=== PATIENT | male | born 1990 | race Caucasian/White ===

== ENCOUNTER 2024-10-06 23:35 | Emergency (ER) | payer SELFPAY ==
[2024-10-06 23:38] VITALS: BP 134/84; PULSE 79; RESP 18; TEMP 35.9; O2SAT 100
--- NOTE | 2024-10-07 00:11 | PC.NURSE ---
PATIENT CHANGED INTO PAPER SCRUBS, URINE SAMPLE WAS GIVEN AND TAKEN DOWN TO LAB. [facility] GIBS[facility], SITTING AT THE BEDSIDE. PATIENT IS CALM AND COOPERATIVE. WARM BLANKET WAS GIVEN
--- NOTE | 2024-10-07 00:20 | ECG_ITS ---
Test Date: 2024-10-07 00:23:12 Measurements Intervals [place] Rate: 59 P: 53 NE: 162 QRS: 73 QRSD: 97 T: 66 QT: 430 QTc: 428 Interpretive Statements SINUS BRADYCARDIA No previous ECG available for comparison Electronically Signed On 10-09-2024 12:24:42 ROUTING EQUIPMENT TENDER by Robe Hoyos M.D.
--- NOTE | 2024-10-07 00:30 | ED.GENADULT ---
HPI - General Adult General Chief complaint: Psychiatric Symptoms Stated complaint: psychiatric symptoms Source: patient Mode of arrival: ambulatory Limitations: no limitations History of Present Illness HPI narrative: 34-year-old white male released from a psychiatric facility a week ago is depressed and feels like committing suicide so he came in for help. In the past he has tried to hang himself he has no plan today. today got in argument with his mother couple hours later he went back home and the door was locked. patient said he had argument with his mother and he was going to get a public housing and not live with her anymore. She was thinking about laying down on the railroad tracks but did not want to do that so came to the emergency department. He has a history of methamphetamine abuse last took meth around September 23. Otherwise eating and drinking voiding and stooling fine without any fever cough runny nose sore throat rash or itching bleeding or bruising pain problems walking talking seeing or hearing dizziness or lightheadedness or any other complaints. Related Data Home Medications ?Medication ?Instructions ?Recorded ?Confirmed ?Last Taken ?Type ranitidine HCl 300 mg tablet 300 mg PO HS 08/30/19 08/30/19 Unknown History verapamil 180 mg tablet,extended 180 mg PO DAILY 08/30/19 08/30/19 Unknown History release Allergies Allergy/AdvReac Type Severity Reaction Status Date / Time No Known Allergies Allergy Verified 08/30/19 02:23 Review of Systems Review of Systems: All systems reviewed & are unremarkable except as noted in HPI and below PMFSH Past Medical History Medical History HTN (hypertension) GERD (gastroesophageal reflux disease) Pancreatitis Migraine headache Alcohol abuse Recurrent vomiting Recurrent epigastric abdominal pain Recurrent left upper quadrant abdominal pain Surgical History Surgical History H/O tooth extraction Family History Family History Father Diabetes mellitus Social History Social History Social History: Drinks around 1 pint daily,5 days/week Smoking packs per day: 1 Smoking cigarettes per day: 20.0 Years smoked: 14 Smoking pack-years: 14.00 Smoking status: Current every day smoker Tobacco type: cigarettes Second hand tobacco smoke exposure: Yes Alcohol intake: current Drinks per week: 10 Substance use: current Substance use type: methamphetamine Living arrangements: with family Additional living arrangements comments: Lives with his Grandmother Occupation/Education: unemployed Gender identity (if verbalized by the patient): Male Spiritual care concerns: No Agree to blood products: Yes Exam Narrative: ?White male patient with no apparent distress.? Head normocephalic, atraumatic.? Eyes conjunctiva pink sclera nonicteric.? Extraocular movements are intact.? Ears externally normal.? Oropharynx is clear with moist mucous membranes without exudates.? Neck is supple nontender no lymphadenopathy.? Back is nontender.? Lungs are clear.? Heart is regular rate and rhythm without murmurs gallops or rubs.? Chest wall nontender. Abdomen is soft and nontender no hepatosplenomegaly or masses no CVA tenderness no abdominal bruits.? Extremities no cyanosis clubbing or edema.? Skin is warm and dry without rashes or lesions.? Neurological patient is alert and oriented x4.? Motor and sensory grossly intact.? Gait is normal. Course Vital Signs Vital signs: Vital Signs Temperature 35.9 C L 10/06/24 23:38 Pulse Rate 79 10/06/24 23:38 Respiratory Rate 18 10/06/24 23:38 Blood Pressure 134/84 10/06/24 23:38 Pulse Oximetry 100 10/06/24 23:38 Oxygen Delivery Room Air 10/06/24 23:38 Temperature 35.9 C L 10/06/24 23:38 Pulse Rate 79 10/06/24 23:38 Respiratory Rate 18 10/06/24 23:38 Blood Pressure 134/84 10/06/24 23:38 Pulse Oximetry 100 10/06/24 23:38 Oxygen Delivery Room Air 10/06/24 23:38 Medical Decision Making MDM Narrative Medical decision making narrative: ?Patient placed in room: 5 ? History and physical was performed. normal ETOH acetaminophen flu COVID RSV salicylate level.. H&H was 12 and 35.7 with a normal WBC and platelets, CMP was unremarkable. Drug screen was positive Independent Historian: patient External Source Review: Differential Dx includes but not limited to: suicidal ideation, secondary gain patient may be here just because he got locked out of his home by his mother and has no where else to go Medications were Reviewed: home meds reviewed Medications given: none Independently Interpreted by me: sinus bradycardia at a rate of [address] T wave abnormalities impression borderline EKG is independently interpreted by me. Shared decision Making: Evaluation discussed all questions were asked and answered he agreed with the plan Social Situation Impacting Patients Care: Discussed with psych social workers who came and saw patient. Patient will be admitted to [facility] the psychiatrist there. DISCHARGE DIAGNOSIS: depression with suicidal ideation and plan , medically cleared for psychiatric admission for further evaluation and treatment DISPOSITION : transferred to to [facility] psychiatric unit to psychiatrist CONDITION AT DISCHARGE: stable Vital Signs Vital Signs: Vital Signs Temperature 35.9 C L 10/06/24 23:38 Pulse Rate 79 10/06/24 23:38 Respiratory Rate 18 10/06/24 23:38 Blood Pressure 134/84 10/06/24 23:38 Pulse Oximetry 100 10/06/24 23:38 Oxygen Delivery Room Air 10/06/24 23:38 Temperature 35.9 C L 10/06/24 23:38 Pulse Rate 79 10/06/24 23:38 Respiratory Rate 18 10/06/24 23:38 Blood Pressure 134/84 10/06/24 23:38 Pulse Oximetry 100 10/06/24 23:38 Oxygen Delivery Room Air 10/06/24 23:38 Discharge Plan Discharge Patient Language: Malagasy Prescriptions: No Action ranitidine HCl 300 mg Tablet 300 mg PO HS verapamil 180 mg Tablet Extended Release 180 mg PO DAILY Follow-up/Referrals: Aldo Montenegro MD [Primary Care Provider] -
--- NOTE | 2024-10-07 00:42 | PC.NURSE ---
LAB AT THE BEDSIDE
[2024-10-07 00:49] LABS: Hematocrit 35.7 % (40.0-54.0); Mean Corpuscular HGB Conc 33.6 g/dL (32-36); Mean Corpuscular Hemoglobin 29.6 pg (27.0-31.0); Mean Corpuscular Volume 87.9 fL (78.0-102.0); Mean Platelet Volume 9.1 fl (8.7-11.0); Platelet Count Result 222 K/mm3 (150-420); Red Blood Count 4.06 M/mm3 (4.70-6.10); Red Cell Distribution Width 12.6 % (11.6-14.4); White Blood Count 7.4 K/mm3 (4.8-10.8)
[2024-10-07 01:08] LABS: Amphetamine Screen Urine Negative (Negative); Barbiturate Screen Urine Negative (Negative); Benzodiazepines Screen Urine Negative (Negative); Cannabinoid Screen Urine Positive (Negative); Cocaine Screen Urine Negative (Negative); Methadone Screen Urine Negative (Negative); Opiate Screen Urine Negative (Negative); Phencyclidine Screen Urine Negative (Negative)
[2024-10-07 01:15] LABS: Alanine Aminotransferase 22 U/L (16-63); Albumin Level 3.4 g/dL (3.4-5.0); Alkaline Phosphatase 65 U/L (46-116); Anion Gap 10 mmol/L (4-12); Aspartate Amino Transferase 17 U/L (15-37); Bilirubin,Total 0.3 mg/dL (0.00-1.00); Blood Urea Nitrogen 23 mg/dL (7-18); Calcium 8.1 mg/dL (8.5-10.1); Carbon Dioxide 26 mmol/L (21-32); Chloride 107 mmol/L (98-108); Estimated CRCL calculation 120 ml/min; Estimated Glomerular Filt Rate > 60; Glucose 94 mg/dL (70-99); Osmolality Calculated 299 mOsm/kg (285-295); Potassium 3.7 mmol/L (3.5-5.1); Salicylate 2.8 mg/dL (2.8-20.0); Sodium 143 mmol/L (136-145); Total Protein 6.3 g/dL (6.4-8.2)
[2024-10-07 01:16] LABS: Acetaminophen < 2 ug/mL (10-30); Ethanol < 3 mg/dL (0-6)
[2024-10-07 01:25] LABS: SARS-CoV-2 RNA PCR Negative (Negative)
[2024-10-07 01:27] LABS: Influenza A QL RT-PCR Negative (Negative); Influenza B QL RT-PCR Negative (Negative); RSV RNA, RT-PCR Negative (Negative)
--- NOTE | 2024-10-07 02:00 | PC.NURSE ---
PATIENT APPEARS TO BE SLEEPING. RESP EVEN AND UNLABORED. [facility], SITTING OUTSIDE THE ROOM
--- NOTE | 2024-10-07 02:30 | PC.NURSE ---
[facility] STAFF, [place] AT THE BEDSIDE
--- NOTE | 2024-10-07 03:30 | PC.NURSE ---
[facility] STAFF WITH PATIENT
[2024-10-07 03:49] VITALS: BP 117/74; PULSE 68; RESP 18; TEMP 36.4; O2SAT 98
--- NOTE | 2024-10-07 04:00 | PC.NURSE ---
APPEARS TO BE SLEEPING. RESP EVEN AND UNLABORED. [facility], AT THE BEDSIDE SITTER
--- NOTE | 2024-10-07 05:00 | PC.NURSE ---
PATIENT APPEARS TO BE SLEEPING. RESP EVEN AND UNLABORED. [facility], SITTING OUTSIDE THE ROOM.
--- NOTE | 2024-10-07 05:16 | PC.NURSE ---
PAPERWORK FAXED TO [facility]
--- NOTE | 2024-10-07 06:00 | PC.NURSE ---
APPEARS TO BE SLEEPING. RESP EVEN AND UNLABORED. [facility], SITTING OUTSIDE THE ROOM. PATIENT HAS BEEN CALM AND COOPERATIVE ALL SHIFT
--- NOTE | 2024-10-07 06:20 | PC.NURSE ---
AWAITING RETURN CALL FROM [facility] FOR ACCEPTANCE AND ACCEPTING PHYSICIAN.
--- NOTE | 2024-10-07 06:44 | PC.NURSE ---
TRANSFER FORM SIGNED BY PATIENT AND PLACED ON CHART
[2024-10-07 08:53] VITALS: BP 119/74; PULSE 66; RESP 16; TEMP 36.5; O2SAT 99
[2024-10-07 11:05] VITALS: BP 125/86; PULSE 84; RESP 20; TEMP 36.6; O2SAT 100
[2024-10-07 11:12] VITALS: BP 125/86; PULSE 84; RESP 20; TEMP 36.6; O2SAT 100
--- OUTSIDE RECORDS SUMMARY | 2024-10-14 00:43 | XMS_ITS | Patient Health Record ---
Author Organization [facility] Address [address] [place] [address] Care Team Providers Care Entrepreneurship Program Director Name Role Phone Jennifer Contreras Primary Care Provider [phone] Leslie Koehler Unavailable [phone] Allergies No Known Allergies Results Component Value Reference Range Notes QuantiFERON-TB Gold Plus Reviewed date:10/05/2024 09:12:28 AM Interpretation:Negative Performing Lab:[facility] [address] [facility], Phone - [phone], Director - [facility] Notes/Report: QuantiFERON Incubation Incubation performed. QuantiFERON-TB Gold Plus Negative Negative No response to M tuberculosis antigens detected. Infection with M tuberculosis is unlikely, but high risk individuals should be considered for additional testing (ATS/IDSA/CDC Clinical Practice Guidelines, 2017). The reference range is an Antigen minus Nil result of <0.35 IU/mL. Chemiluminescence immunoassay methodology QuantiFERON Criteria QuantiFERON-TB Gold Plus is a qualitative indirect test for M tuberculosis infection (including disease) and is intended for use in conjunction with risk assessment, radiography, and other medical and diagnostic evaluations. The QuantiFERON-TB Gold Plus result is determined by subtracting the Nil value from either TB antigen (Ag) value. The Mitogen tube serves as a control for the test. QuantiFERON TB1 Ag Value 0.00 QuantiFERON TB2 Ag Value 0.00 QuantiFERON Nil Value 0.00 QuantiFERON Mitogen Value >10.00 HIV Screen *HIV 1, 2 Ab, p24 Ag Reviewed date:10/05/2024 09:12:28 AM Interpretation: Performing Lab:[facility], [address], [place], Phone - [phone], Director - [facility] Notes/Report: HIV Ab/p24 Ag Screen TNP Test no t performed. No serum gel received. Hepatitis B Surface Antigen (HBsAg Screen) Reviewed date:10/05/2024 09:12:28 AM Interpretation: Performing Lab:[address], Phone - [phone], Director - [facility] Notes/Report: HBsAg Screen TNP Test not perfor med. No serum gel received. Specimen Status Report TNP Test not performed. No serum gel received. TEST: [id number] HCV Antibody RFX to Quant PCR [id number] RPR, Rfx Qn RPR/Confirm TP [id number] HIV Ab/p24 Ag with Reflex [id number] HBsAg Screen Hepatitis C Virus Antibody w /Rflx to Quantitative Real-time PCR Reviewed date:10/05/2024 09:12:29 AM Interpretation: Performing Lab:[address], Phone - [phone], Director - [facility] Notes/Report: HCV Ab TNP Test not perfor med. No serum gel received. Rapid Plasma Reagin (RPR) Te st With Reflex to Quantitative RPR and Confirmatory Treponema pallidum Antibodies Reviewed date:10/05/2024 09:12:29 AM Interpretation: Performing Lab:[address], Phone - [phone], Director - [facility] Notes/Report: RPR TNP Test not perfor med. No serum gel received. HIV Screen *HIV 1, 2 Ab, p24 Ag Reviewed date:10/05/2024 09:12:29 AM Interpretation:Negative Performing Lab:[address], Phone - [phone], Director - [facility] Notes/Report: Clinical Information:REC'D [facility] 10/02 HIV Ab/p24 Ag Screen Non Reactive Non Reactive HIV-1/HIV-2 antibodies and HIV-1 p24 antigen were NOT detected. There is no laboratory evidence of HIV infection. HIV Negative Hepatitis B Surface Antigen (HBsAg Screen) Reviewed date:10/05/2024 09:12:29 AM Interpretation:Negative Performing Lab:[address], Phone - [phone], Director - [facility] Notes/Report: Clinical Information:REC'D ADTL SSTS 10/02 HBsAg Screen Negative Negative Hepatitis C Virus Antibody w /Rflx to Quantitative Real-time PCR Reviewed date:10/05/2024 09:12:29 AM Interpretation:Negative Performing Lab:[facility], [address] [facility], Phone - [phone], Director - [place] Notes/Report: Clinical Information[facility] 10/[facility] Clinical Information:[facility] 10/02 HCV Ab Non Reactive Non Reactive Interpretation: Not infected with HCV unless early or acute infection is suspected (which may be delayed in an immunocompromised individual), or other evidence exists to indicate HCV infection. Rapid Plasma Reagin (RPR) Te st With Reflex to Quantitative RPR and Confirmatory Treponema pallidum Antibodies Reviewed date:10/05/2024 09:12:29 AM Interpretation:Negative [facility]forming [facility], [address] [facility], Phone - [phone], Director - [place] Notes/Report: Clinical Information:[facility] 10/02 RPR Non Reactive Non Reactive Reason For Referral No Information Medications Medication SIG (Take, Route, Frequency, Duration) Notes Start Date End Date Status Multivitamin - 1 tablet Orally Once a day Active SEROquel 100 MG 1 tablet Orally Once a day for 30 days take 1 tablet with 50 mg tablet every night at bedtime Patient is on CRU, please deliver. 09/29/2024 Active SEROquel 50 MG 1 tablet Orally Three times a day for 30 days Take 1 tablet in the morning, 1 tablet at lunch, 1 tablet at bedtime with 100 mg tablet Patient is on CRU, please deliver. Active hydrOXYzine HCl 25 MG 2 tablets Orally every 4 hours As needed Active Social History Tobacco Use: Social History Observation Description Date Details (start date - stop date) Current Smoker NA - NA Sex Assigned At : Social History Observation Description Sex Assigned At Male Tobacco Control (Standard) Question Answer Notes Tobacco use: Current every day smoker Additional Findings: Tobacco user Moderate cigar ette smoker (10-19 cigs/day) Problems Problem Type SNOMED Code ICD Code Onset Dates Problem Status W/U Status Risk Notes Problem Tobacco user (315067798) Nicotine dependence, unspecified, uncomplicated (F17.200) Active confirmed Problem Depression (083417807) Depression (F32.9) Active confirmed Problem Anxiety (50768871) Anxiety (F41.9) Active confi rmed Problem Methamphetamine abuse (914985901) Methamphetamine abuse (F15.10) Active confirmed Vital Signs Heart Rate 69 /min 10/01/2024 Respiratory Rate 16 /min 10/01/2024 Oximetry 98 % 10/01/2024 Blood pressure diastolic 82 mm Hg 10/01/2024 Height 72 in 10/01/2024 Blood pressure systolic 124 mm Hg 10/01/2024 Weight 178 lbs 10/01/2024 BMI 24.14 kg/m2 10/01/2024 Encounters Encounter Location Date Provider Diagnosis [facility] [address] [place] [address] 09/29/2024 Leslie Koehler [address] [place] [address] 10/05/2024 Jennifer Contreras [facility] [address] 10/01/2024 Jennifer Contreras Adult general medica l exam Z00.00 ; Methamphetamine abuse F15.10 ; Exposure to potential infection Z20.9 and Nicotine dependence, unspecified, uncomplicated F17.[address] [place], [place] [address] 09/29/2024 Leslie Koehler Depression F32.9 and Anxiety F41.9 Assessments Encounter Date Diagnosis (ICD Code) Assessment Notes Treatment Notes Treatment Clinical Notes Section Notes 09/29/2024 Depression (ICD-10 - F32.9) Continue Seroquel. Take as prescribed. Reviewed purpose (mood stability), benefits, and risks - low blood pressure, metabolic syndrome with high cholesterol or high blood sugars, change in cardiac conduction, nausea, vomiting, temporary or permanent movement disorders, and akathisia. Call for problems with medication, side effects or need for dosage change. 09/29/2024 Anxiety (ICD-10 - F41.9) Continue hydroxyzine. Take as prescribed. Reviewed purpose (reduce anxiety and/or promote sleep), benefits, and risks - including sedation and dry mouth. Call for problems with medication, side effects or need for dosage change. 10/01/2024 Methamphetamine abuse (ICD-10 - F15.10) 10/01/2024 Adult general medical exam (ICD-10 - Z00.00) 10/01/2024 Exposure to potential infection (ICD-10 - Z20.9) 10/01/2024 Nicotine dependence, unspecified, uncomplicated (ICD-10 - F17.200) 09/29/2024 Other May self-administer medications or be administered own oral medications per [place] protocols. Provided informed consent with understanding of side effects, adverse effects, risks and benefits as well as alternative treatments as previously discussed and with the above recommended medications & other aspects of the treatment program. Agrees to return sooner if symptoms worsen or suicidal or homicidal ideations occur. Unable to complete AIMS due to nature of appt, denies any irregular muscle movements; would benefit from an in person appointment. Plan: -Continue Seroquel from previous provider: 50 mg in AM, 50 mg at lunch, 150 mg QHS -Continue Hydroxyzine 25 mg 2 tabs PRN q4hrs for anxiety -Follow up: 2 weeks [] Hard Rx handed to patient [] Rx phoned into pharmacy [x] Rx faxed/e-prescribed into pharmacy [x] PDMP Reviewed [] [facility] Reviewed Encour[facility] by [facility] to: [x] consider utilizing therapist/counselor /licensed clinical social worker/psychologist , referral given [] continue with therapist/counselor /licensed clinical social worker/psychologist Psychoeducation: -Treatment options discussed in detail with patient/guardian verbalizing understanding of treatment rationales. -Side effects and benefits of all medications prescribed discussed at length between psychiatric prescribing provider and patient/guardian along with the risks associated of [id number] interactions, including but not limited to prescription medications, OTC medications, vitamins, minerals and herbal supplements. -Patient/Guardian and provider dialogue showcased verbalized understanding from patient on rationales of medication risk vs benefits. -Information with neurobiology of presenting neurotransmitter disorder, mood stability, sleep hygiene and 7-8 hours of uninterrupted sleep per night with wakeful and refreshed awakening and day long alertness discussed. -Reduction of stress and anxiety to aid in focus and concentration discussed, again, with patient/guardian physically nodding, voicing understanding, and engaged in treatment plan with Leslie Koehler [facility]. -Perceiving complete understanding of rationale by patient/guardian and willingness to adhere to formulated plan of care by prescriber with patient/guardian buy-in, willingness to participate actively in plan of care and willing to take charge of own care. -Although geared for female patients, all patients/guardians are informed by prescribing provider of risks of medications that could potentially be taken by female/women within their [place] band of influence and that women who use medicine during have a higher chance of having a baby with defects. -Patient/Guardian denies being and/or knowing of women who are at present and denies wanting to become in the foreseeable future, 0-6 months from now. -Patient/Guardian again informed of the risk of pharmaceutical medications consumed during and how there are potential negative effects on the developing fetus. -Patient/Guardian verbalizes understanding of rationale and physically nods head in agreement that if a should occur, to consult with provider, AUTO SALVAGE WORKER and/or Nurse Dredge Or Barge Shore Hand to determine if prescribed medications should or should not be continued. -Instructions regarding both the medical/pharmacolog ical and non-pharmacologic aspects of the treatments employed were given, and the patient/guardian seemed to understand this. Risks and benefits of treatment, and of non-treatment, were also discussed. The patient/guardian understands the more frequent side effects associated with the medications. -The use of psychotherapy was addressed today and will continue on an as needed basis for the foreseeable future. The choice is, of course, ultimately left to the patient/guardian. -Patient/Guardian was encouraged to make a follow-up appointment for the next visit. -Additional treatment was discussed and has been addressed on an ongoing basis within the context of this patient's illness, resources, progress, and other appropriate factors. Being compliant with a regular exercise routine, consistent medication use, ongoing psychotherapy, eating and sleeping well, as well as the importance of handling stress, was discussed. 10/01/2024 Other Continue treatment as recommended by [facility] staff. Encouraged patient to obtain routine medical care with patient's own primary care provider or establish as a patient at [facility] if no current primary care provider. Plan Of Treatment No Information Insurance Providers Payer Name Payer Address Payer Phone Subscriber Number Group Number Insured Name Patient Relationship to Insured Coverage Start Date Coverage End Date [facility] Attn Claims Department [address] [place] [address] [phone] [id number] Jason London Self - patient is the insured 4 [facility] Attn Claims Department [address] [place] [address] [id number] Jason London Self - patient is the insured 4 Medical (General) History Medical History History ICD Code depression anxiety pancreatitis Hospitalization History Reason Date(Month/Year) pancreatitis
--- OUTSIDE RECORDS SUMMARY | 2024-10-14 00:43 | XMS_ITS ---
Author Organization [facility], 1928–1983 Address [address] [place] [address] Care Team Providers Care Last Model Department Supervisor Name Role Phone Vianney Contrerasnifer Primary Care Provider Allergies No Known Allergies REASON FOR VISIT MH Medications Medication SIG (Take, Route, Frequency, Duration) [...] Problem Status W/U Status Risk Notes Problem Methamphetamine abuse (130397207) Methamphetamine abuse (F15.10) Active confirmed Problem Tobacco user (141962722) Nicotine dependence, unspecified, uncomplicated (F17.200) Active confirmed Vital Signs Weight 178 lbs 10/01/2024 Height 72 in 10/01/2024 BMI 24.14 kg/m2 10/01/2024 Blood pressure systolic 124 mm Hg 10/01/20 24 Blood pressure diastolic 82 mm Hg 024 Heart Rate 69 /min 10/01/2024 Oximetry 98 % 10/01/2024 Respiratory Rate 16 /min 10/01/2024 Encounters Encounter Location Date Provider Diagnosis [facility] [address] [place] [address] 10/01/2024 Jennifer Contreras Adult general medica l exam Z00.00 ; Methamphetamine abuse F15.10 ; Exposure to potential infection Z20.9 and Nicotine dependence, unspecified, uncomplicated F17.200 Assessments Encounter Date Diagnosis (ICD Code) Assessment Notes Treatment Notes Treatment Clinical Notes Section Notes 10/01/2024 Adult general medical exam (ICD-10 - Z00.00) 10/01/2024 Methamphetamine abuse (ICD-10 - F15.10) 10/01/2024 Exposure to potential infection (ICD-10 - Z20.9) 10/01/2024 Nicotine dependence, unspecified, uncomplicated (ICD-10 - F17.200) 10/01/2024 Other Continue treatment as recommended by [facility] staff. Encouraged patient to obtain routine medical care with patient's own primary care provider or establish as a patient at [facility] if no current primary care provider. Plan Of Treatment Treatment Notes Assessment Notes Other Continue treatment as recommended by [facility] staff. Encouraged patient to obtain routine medical care with patient's own primary care provider or establish as a patient at [facility] if no current primary care provider. Next Appt Details Follow Up: prn, Reason: Progress Notes * Jason LONDONDOB:1990 (34 yo M)Acc No.[id number]:10/01/2024 Patient:?Jason LONDON Provider:?Jennifer Contreras APRN :1990???Age:34 Y???Sex:Male Tavo e:10/01/2024 Address:[address] [place], [place] [id number] Check In:08:01 AM TERRITORY SERVICE REPRESENTATIVE Subjective: * Chief Complaints: * ???MH * HPI: ???Preventative Health and Wellness follow-up:?Action Plans for Clinical Quality Measures:?HIV Screening:? drawn today 10/01/24.?. ???CSSRS Interpretation and Follow Up Plan:?CSSRS Interpretation and Follow Up Plan. ?CSSRS Interpretation and Follow Up Plan?Moderate or High risk requires selection of a follow up plan?CSSRS Moderate/high: Warm hand off to Crisis Intervention team.?Interim History:?Emergency room visit?No.?Was hospitalized?No.?Depression Screening:?PHQ-9?Little interest or pleasure in doing things?Nearly every day,?Feeling down, depressed, or hopeless?Nearly every day,?Trouble falling or staying asleep, or sleeping too much?Nearly every day,?Feeling tired or having little energy?Nearly every day,?Poor appetite or overeating?Nearly every day,?Feeling bad about yourself or that you are a failure, or have let yourself or your family down?Nearly every day,?Trouble concentrating on things, such as reading the newspaper or watching television?Nearly every day,?Moving or speaking so slowly that other people could have noticed; or the opposite, being so fidgety or restless that you have been moving around a lot more than usual?Nearly every day,?Thoughts that you would be better off or of hurting yourself in some way?Nearly every day (Consider Suicide Assessment Risk),?Total Score?27,?Interpretation?Severe Depression.?Intervention?Depression Screening Findings?Positive, Follow-Up for Depression?Patient is admitted to a [facility] residential unit where their mental health is monitored, No Referral necessary, patient involved in behavioral health treatment.?Summary:?Presents for physical as patient is admitted to Residential [facility] at [facility]. Hx. of Meth.use/ Last use 09/23/24 via IV drug use. ETOH abuse last use 10/2021.? Previous treatment: [facility] Psych provider: Leslie Sage @ [facility] PCP: Dr. Montenegro in [facility] Any medical acute concerns: Denies Denies SI/HI Pt. requesting STI testing, also agreeable to HEp B/C testing-Hx of IVDU. ???Screening:?[place] Suicide Severity Rating Scale (LF)?Do you want to initiate with?Screener form,?1. Wish to be : Have you wished you were or wished you could go to sleep and not wake up??Yes,?2. Suicidal Thoughts: Have you actually had any thoughts of killing yourself??Yes,?3. Suicidal Thoughts with Method (without Specific Plan or Intent to Act): Have you been thinking about how you might do this??No,?4. Suicidal Intent (without Specific Plan): Have you had these thoughts and had some intention of acting on them??No,?5. Suicide Intent with Specific Plan: Have you started to work out or worked out the details of how to kill yourself? Do you intend to carry out this plan??No,?6. Suicide Behaviour: Have you ever done anything,started to do anything, or prepared to end your life??No,?Interpretation:?Low Risk.? * ROS:?Psych ROS:?Constitutional?Denies.?Eyes?Denies.?Ears/Nose/Mouth/Throat?Denies.?Respirat ory?Denies.?Cardiova scular?Denies.?GI?Denies.??Denies.?Musculoskeletal?Denies.?Neurological?Denies . Integ umentary?Denies.?Hematological/Lymphatic?Denies.?Basic ROS:?Denies?Seizures.?Denies?Suicidal Thoughts.? * Medical History:? * Surgical History:?No Surgica l History documented. * Hospitalization/Major Diagno stic Procedure:?pancreatitis * Family History:?Father: darian wei.?Mother: alive.?1 brother(s) - healthy. .? * Social History:?Primary Social History:?Living Arrangement?Living Arrangement:?Homeless,?Is this a supportive environment??No.?Alcohol Use?Alcohol Use Frequency:?Never.?Illicit Substance Usage Illicit Substance Usage:?Yes,?Substance Used:?Cannabis.?Employment Status?Employment Status:?Unemployed.?Tobacco Use:?Tobacco Control (Standard)?Tobacco use:?Current every day smoker,?Additional Findings: Tobacco user?Moderate cigarette smoker (10-19 cigs/day).?Miscellaneous:?Method of learning?Preferred method of learning:?Reading.? * Medications:?TakingMultivita min - Tablet 1 tablet Orally Once a day hydrOXYzine HCl 25 MG Tablet 2 tablets Orally every 4 hours As neededSEROquel 50 MG Tablet 1 tablet Orally Three times a day Take 1 tablet in the morning, 1 tablet at lunch, 1 tablet at bedtime with 100 mg tablet, Notes to Pharmacist: Patient is on CRU, please deliver.SEROquel 100 MG Tablet 1 tablet Orally Once a day take 1 tablet with 50 mg tablet every night at bedtime, Notes to Pharmacist: Patient is on CRU, please deliver.Medication List reviewed and reconciled with the patientTaking Multivitamin - Tablet 1 tablet Orally Once a day Taking hydrOXYzine HCl 25 MG Tablet 2 tablets Orally every 4 hours As neededTaking SEROquel 50 MG Tablet 1 tablet Orally Three times a day Take 1 tablet in the morning, 1 tablet at lunch, 1 tablet at bedtime with 100 mg tablet, Notes to Pharmacist: Patient is on CRU, please deliver.Taking SEROquel 100 MG Tablet 1 tablet Orally Once a day take 1 tablet with 50 mg tablet every night at bedtime, Notes to Pharmacist: Patient is on CRU, please deliver.Medication List reviewed and reconciled with the patient * Allergies:?N.K.D.A.no[Allerg ies Verified] Objective: * Vitals:?Initials: hp, Wt:178 , Ht:72, BMI:24.14, BP:124/82, HR:69, Oxygen sat %:98, RR:16. * Examination: ???Activity Permissions and Medication Self Administration: ?Activity Level & Medication Self-Administration Permissions?.?. ???General Examination: ?GENERAL APPEARANCE:?alert, in no acute distress.?HEAD:?normocephalic, atraumatic.?EYES:?BOTH EYES, sclera anicteric, pupils equal, round, reactive to light and accommodation , extraocular movement intact (EOMI).?EARS?BOTH EARS, normal.?NOSE:?nares patent.?ORAL CAVITY:?mucosa moist.?THROAT:?pharynx normal.?NECK/THYROID:?neck supple , no thyromegaly.?SKIN:?warm and dry, no rashes, no suspicious lesions.?HEART:?regular rate and rhythm, S1, S2 normal, no S3, S4, no murmurs, rubs, gallops.?LUNGS:?respirations regular and easy, clear to auscultation bilaterally, no wheezes, rales, rhonchi, clear anteriorly and posteriorly, good air movement.?ABDOMEN:?bowel sounds present, soft, nontender, nondistended, no masses palpable, no organomegaly .?EXTREMITIES:?no edema.?PERIPHERAL PULSES:?2+ radial.?NEUROLOGIC:?nonfocal, gait normal.?PSYCH:?appropriate affect.? Assessment: * Assessment: 1.?Methamphetamine abuse - F 15.10???2.?Adult general medical exam - Z00.00 (Primary)???3.?Exposure to potential infection - Z20.9???4.?Nicotine dependence, unspecified, uncomplicated - F17.200??? Plan: * Treatment: 2.?Exposure to potential inf ection?LAB: HIV Screen *HIV 1, 2 Ab, p24 Ag (Ordered for 10/01/2024) (Collection Date & Time - 10/01/2024 08:27 AM) ?LAB: Hepatitis B Surface Antigen (HBsAg Screen) (Ordered for 10/01/2024) (Collection Date & Time - 10/01/2024 08:27 AM) ?LAB: Hepatitis C Virus Antibody w/Rflx to Quantitative Real-time PCR (Ordered for 10/01/2024) (Collection Date & Time - 10/01/2024 08:27 AM) ?LAB: Rapid Plasma Reagin (RPR) Test With Reflex to Quantitative RPR and Confirmatory Treponema pallidum Antibodies (Ordered for 10/01/2024) (Collection Date & Time - 10/01/2024 08:27 AM) 3.?Others? Notes:Continue treatment as recommended by [facility] staff.Encouraged patient to obtain routine medical care with patient's own primary care provider or establish as a patient at [facility] if no current primary care provider.?? * Recommended Wellness and Pre vention Guidelines: * ?Status ?Alert ?Last Done ?Next Due ?Action Taken ?NONCOMPLIANT ?Alcohol use screening ?- ? ?- ?NONCOMPLIANT ?Allergy List Verification ?- ?10/01 ?- ?NONCOMPLIANT ?Body Mass Index ?- ?10/01/2024 ?- ?NONCOMPLIANT ?Depression followup ?09/29/2024 ?10/01/2024 ?- ?NONCOMPLIANT ?HIV screening ?- ?10/01/2024 ?- * Procedure Codes:?31487 BEHAV CHNG SMOKING 3-10 MIN * Preventive Medicine:? ??Counseling:?SMOKING:?Patient counselled on the dangers of tobacco use and urged to quit.?..? * Follow Up:?prn * * ITORY SERVICE REPRESENTATIVE Sign off status: Completed true * Provider:?Jennifer Contreras, JOHN Date:?1 12/02/2023 Generated for Matilde conway/Yohan/eTransmitting on:?10/14/2024 12:42 AM TERRITORY SERVICE REPRESENTATIVE History and Physical Notes * HPI (History of Present Illness) Category Sub-Category Detail Notes Category Not es Interim History Was hospitalized No Emergency room visit No Depression Screening PHQ-9 Little inte rest or pleasure in doing things: Nearly every day Feeling down, depressed, or hopeless: Ne christian every day Trouble falling or staying asleep, or sl eeping too much: Nearly every day Feeling tired or having little energy: N early every day Poor appetite or overeating: Nearly ever y day Feeling bad about yourself o r that you are a failure, or have let yourself or your family down: Nearly every day Trouble concentrating on thi ngs, such as reading the newspaper or watching television: Nearly every day Moving or speaking so slowly that other people could have noticed; or the opposite, being so fidgety or restless that you have been moving around a lot more than usual: Nearly every day Thoughts that you would be b olivier off or of hurting yourself in some way: Nearly every day (Consider Suicide Assessment Risk) Total Score: 27 Interpretation: Severe Depression Intervention Depression Screening Findings: P ositive Follow-Up for Depression: Rosendo benavidez is admitted to a [facility] where their mental health is monitored, No Referral necessary, patient involved in behavioral health treatment Summary Presents for physical as patient is admitted to [facility]. Hx. of Meth.use/ Last use 09/23/24 via IV drug use. ETOH abuse last use 10/2021. Previous treatment: [facility] Psych provider: Leslie Sage @ [facility] PCP: Dr. Montenegro in [facility] Any medical acute concerns: Denies Denies SI/HI Pt. requesting STI testing, also agreeable to HEp B/C testing-Hx of IVDU Screening [place] Suicide Severity Rating Scale (LF) Do you want to initiate with: Screener form ?1. Wish to be : Have yo u wished you were or wished you could go to sleep and not wake up?: Yes ?2. Suicidal Thoughts: Have you actually had any thoughts of killing yourself?: Yes ??3. Suicidal Thoughts with Method (without Specific Plan or Intent to Act): Have you been thinking about how you might do this?: No ??4. Suicidal Intent (withou t Specific Plan): Have you had these thoughts and had some intention of acting on them?: No ??5. Suicide Intent with Spe cific Plan: Have you started to work out or worked out the details of how to kill yourself? Do you intend to carry out this plan?: No ?6. Suicide Behaviour: Have you ever done anything,started to do anything, or prepared to end your life?: No ?Interpretation:: Low Risk Do Not Use CSSRS Interpretation and Follow Up Plan CSSRS Interpretation and Follow Up Plan Moderate or High risk requires selection of a follow up plan: CSSRS Moderate/high: Warm hand off to Crisis Intervention team Preventative Health and Wellness follow-up Action Plans for Clinical Quality Measures: HIV Screening:: drawn today 10/01/24 . Examination Category Sub-Category Detail Notes Category Not es General Examination GENERAL APPEARANCE: alert, in no a cute distress HEAD: normocephalic, atrau matic EYES: BOTH EYES, sclera an icteric, pupils equal, round, reactive to light and accommodation , extraocular movement intact (EOMI) EARS BOTH EARS, normal NOSE: nares patent THROAT: pharynx normal NECK/THYROID: neck supple , no thy romegaly HEART: regular rate and rhy thm, S1, S2 normal, no S3, S4, no murmurs, rubs, gallops LUNGS: respirations regular and easy, clear to auscultation bilaterally, no wheezes, rales, rhonchi, clear anteriorly and posteriorly, good air movement ABDOMEN: bowel sounds present , soft, nontender, nondistended, no masses palpable, no organomegaly NEUROLOGIC: nonfocal, gait gera l SKIN: warm and dry, no navin hes, no suspicious lesions EXTREMITIES: no edema PERIPHERAL PULSES: 2+ radial PSYCH: appropriate affect ORAL CAVITY: mucosa moist Activity Permissions and Medication Self Administration Activity Level & Medication Self-Administration Permissions Activity Level Permitted:: The patient/client may fully take part in physical fitness programming including aerobic, muscular strength, and flexibility training without restriction. . Medication Self-Administrati on Permissions:: Medications may be self- administered by the patient/client under the supervision of approved staff or administered by nursing staff.
--- OUTSIDE RECORDS SUMMARY | 2024-10-14 00:43 | XMS_ITS | Encounter Summary ---
Author Organization [facility] Address [address] [place] [address]. [place], [place] [id number] [place] [address] Care Team Providers Care Apprentice Photographer Name Role Phone Aldo Montenegro MD Primary Care Provider Encounter Details Date Type Department Care Team (Latest Contact Info) Description 01/23/2024 Travel Social History Tobacco Use Types Packs/Day Years Used Date Smoking Tobacco: Every Day Cigarettes Smokeless Tobacco: Never Alcohol Use Standard Drinks/Week Comments Not Currently 0 (1 standard drink = 0.6 oz pur e alcohol) Sex and Gender Information Value Date Recorded Sex Assigned at Not on file Legal Sex Male 4:44 PM CDT Gender Identity Not on file Sexual Orientation Not on file documented as of this encounter Plan of Treatment Not on file documented as of this encounter Visit Diagnoses Not on filedocumented in this encounter Care Teams Apprentice Photographer Relationship Specialty Start Date End Date Aldo Montenegro MD [address] [place] [address] PCP - General INTERNAL MEDICINE 10/21/21 documented as of this encounter
--- OUTSIDE RECORDS SUMMARY | 2024-10-14 00:43 | XMS_ITS | Encounter Summary ---
Author Organization [facility] Address [address] [place] [address]. [address] [address] Care Team Providers Care Student Counselor Name Role Phone Aldo Montenegro MD Primary Care Provider [phone] Encounter Details Date Type Department Care Team (Latest Contact Info) Description 04/20/2023 Travel Social History Tobacco Use Types Packs/Day Years Used Date Smoking Tobacco: Every Day Cigarettes Smokeless Tobacco: Never Alcohol Use Standard Drinks/Week Comments Not Currently 0 (1 standard drink = 0.6 oz pur e alcohol) Gallon a day Sex and Gender Information Value Date Recorded Sex Assigned at Not on file Legal Sex Male 4:44 PM CDT Gender Identity Not on file Sexual Orientation Not on file documented as of this encounter Plan of Treatment Not on file documented as of this encounter Visit Diagnoses Not on filedocumented in this encounter Care Teams Student Counselor Relationship Specialty Start Date End Date Aldo Montenegro MD [address] [place] [address] PCP - General INTERNAL MEDICINE 10/21/21 documented as of this encounter
--- OUTSIDE RECORDS SUMMARY | 2024-10-14 00:43 | XMS_ITS | Clinical Summary ---
Author Organization [facility] Address [address] [place] [address]. [place], [place] [id number] [place] [address] Care Team Providers Care Front End Specialist Name Role Phone Aldo Montenegro MD Primary Care Provider [phone] Allergies No known active allergies Medications No known medications Immunizations Name Administration Dates Next Due Tdap (Boostrix) 01/23/2024,09/12/2022 Family History Medical History Relation Comments No Known Problems Father No Known Problems Mother Relation Status Comments Father Alive Mother Alive Social History Tobacco Use Types Packs/Day Years Used Date Smoking Tobacco: Every Day Cigarettes Smokeless Tobacco: Never Tobacco Cessation:Ready to Q uit: Not Asked; Counseling Given: Not Answered Alcohol Use Standard Drinks/Week Comments Not Currently 0 (1 standard drink = 0.6 oz pur e alcohol) Sex and Gender Information Value Date Recorded Sex Assigned at Not on file Legal Sex Male 4:44 PM CDT Gender Identity Not on file Sexual Orientation Not on file Last Filed Vital Signs Vital Sign Reading Time Taken Comments Blood Pressure 120/72 01/23/2024 4:00 AM CDT Pulse 86 01/23/2024 3:36 AM CDT Temperature 36.4 ??C (97.6 ??F) 01/23/2024 3:36 AM CD T Respiratory Rate 16 01/23/2024 3:36 AM CDT Oxygen Saturation 95% 01/23/2024 4:10 AM CDT Inhaled Oxygen Concentration - - Weight 86.2 kg (190 lb) 01/23/2024 3:36 AM CDT Height 182.9 cm (6') 01/23/2024 3:36 AM CDT Body Mass Index 25.77 01/23/2024 3:36 AM CDT Plan of Treatment Health Maintenance Due Date Last Done Comments Annual Physical 1995 Pneumococcal Vaccine: Pediatrics (0 to 5 Years) and At-Risk Patients (6 to 64 Years) (1 of 2 - PCV) 1998 Hepatitis C 2010 COVID-19 Vaccine (2 - season) 2024 10/14/2021 Influenza Adult (#1) 2024 DTaP, Tdap and Td Vaccines (9 - Td or Tdap) 01/22/2034 01/23/2024, 09/12/2022, 05/19/2007, Additional history exists Hepatitis B Vaccines Completed 12/10/2003, 07/09/2003, 06/11/2003 Meningococcal Vaccine Aged Out 05/19/2007 No juhi raimundo eligible based on patient's age to complete this topic HPV Vaccines Aged Out No longer eligi ble based on patient's age to complete this topic RSV Immunizations Under 20 Months Aged Out No longer eligible based on patient's age to complete this topic Insurance Care Teams Front End Specialist Relationship Specialty Start Date End Date Aldo Montenegro MD [address] [place] [address] PCP - General INTERNAL MEDICINE 10/21/21
--- OUTSIDE RECORDS SUMMARY | 2024-10-14 00:43 | XMS_ITS | Encounter Summary ---
Author Organization [facility] Address [address] [place] [address]. [place], [place] [id number] [place] [id number] Care Team Providers Care Pet Ambassador Name Role Phone Aldo Montenegro MD Primary Care Provider [phone] Reason for Visit * Reason Comments Hand Injury Encounter Details Date Type Department Care Team (Late st Contact Info) Description 02/01/2023 10:41 PM CDT - 02/01/2023 11:24 PM CDT Emergency [facility] [address] [place] [address] [place] [address] Sanchez Lara MD [address] [place] [id number] Hand Injury Discharge Disposition: Home or Self Care (Routine Discharge) Social History Tobacco Use Types Packs/Day Years Used Date Smoking Tobacco: Every Day Cigarettes Smokeless Tobacco: Never Tobacco Cessation:Ready to Q uit: Not Asked; Counseling Given: Not Answered Alcohol Use Standard Drinks/Week Comments Not Currently 0 (1 standard drink = 0.6 oz pur e alcohol) a Sex and Gender Information Value Date Recorded Sex Assigned at Not on file Legal Sex Male 4:44 PM CDT Gender Identity Not on file Sexual Orientation Not on file COVID-19 Exposure Response Date Recorded In the last 10 days, have yo u been in contact with someone who was confirmed or suspected to have Coronavirus/COVID-19? No / Unsure 02/01/2023 10:35 PM CDT documented as of this encounter Last Filed Vital Signs Vital Sign Reading Time Taken Comments Blood Pressure 120/62 02/01/2023 11:00 PM CDT Pulse 92 02/01/2023 10:47 PM CDT Temperature 37.1 ??C (98.7 ??F) 02/01/2023 10:49 PM C DT Respiratory Rate 16 02/01/2023 10:47 PM CDT Oxygen Saturation 99% 02/01/2023 11:00 PM CDT Inhaled Oxygen Concentration - - Weight 88.5 kg (195 lb) 02/01/2023 10:47 PM CDT Height 188 cm (6' 2 ) 02/01/2023 10:47 PM CDT Body Mass Index 25.04 02/01/2023 10:47 PM CDT documented in this encounter Discharge Instructions * Attachments The following attachments cannot be sent through Care Everywhere. * Contusion Discharge Instructions (Kiswahili) documented in this encounter Medications at Time of Discharge HYDROcodone-aceta minophen (NORCO) 5-325 MG tabletIndications :Acute Pain < 3 Day Supply Take 1-2 tablets by mouth every 6 (six) hours as needed. Indications: Acute Pain < 3 Day Supply 12 tablet 02/01/2023 07/13/2023 QUEtiapine 200 MG tablet 200 mg nightly at bedtime. 08/21/2021 07/13/2023 QUEtiapine 25 MG tablet 2 (two) times daily. 08/21/2021 01/23/2024 documented as of this encounter ED Notes * Lavern Taylor RN - 02/01/2023 10:43 PM CDT Pt to the ER with c/o right hand pain. Pt was upset this am and punched the wall. Right hand is swollen and bruised. * Sanchez Lara MD - 02/01/2023 10:41 PM CDT eMERGENCY dEPARTMENT eNCOUnter CHIEF COMPLAINT Chief Complaint Patient presents with Hand Injury HPI HPI Jason London is a 32-year-old male who presents to the ER with a complaint of right hand pain. Patient was upset and punched a wall earlier today. He is right-hand dominant. He complains of pain and swelling to the hand. No previous injury to this hand in the past. ALLERGIES Review of patient's allergies indicates: No Known Allergies CURRENT MEDICATIONS Current Outpatient Medications Medication Sig HYDROcodone-acetaminophen (NORCO) 5-325 MG tablet Take 1-2 tablets by mouth every 6 (six) hours as needed. Indications: Acute Pain < 3 Day Supply QUEtiapine 200 MG tablet 200 mg nightly at bedtime. QUEtiapine 25 MG tablet 2 (two) times daily. PAST MEDICAL HISTORY Past Medical History: Diagnosis Date Anxiety Depression Pancreatitis SURGICAL HISTORY History reviewed. No pertinent surgical history. SOCIAL HISTORY Social History Socioeconomic History Marital status: Tobacco Use Smoking status: Every Day Packs/day: 1.00 Types: Cigarettes Smokeless tobacco: Never Vaping Use Vaping Use: Never used Substance and Sexual Activity Alcohol use: Not Currently Comment: Gallon a day Drug use: Yes Types: Marijuana Comment: denies Sexual activity: Not Currently FAMILY HISTORY Family History Problem Relation Name Age of Onset No Known Problems Mother No Known Problems Father REVIEW OF SYSTEMS Review of Systems All other ROS negative unless noted above in HPI. PHYSICAL EXAM Physical Exam Filed Vitals: 02/01/23 2247 02/01/232248 BP: (!) 140/76 Pulse: 92 Resp: 16 Temp: 98.7 ??F (37.1 ??C) TempSrc: Temporal SpO2: 98% Weight: 88.5 kg (195 lb) Height: 6' 2 (1.88 m) The patient is a well developed and well nourished adult male in mild to moderate painful distress,alert and oriented. HEENT: PERRL, EOMI Nose without drainage Throat without lesions, mucous membranes moist NECK: Supple without adenopathy or rigidity CHEST: Respirations are easy and unlabored EXT: No clubbing, cyanosis, edema, there is soft tissue swelling over the dorsum of the right hand especially over the second through fourth distal metacarpals, painful range of motion distal neurovascular exams intact NEURO: CN II-XII intact, no focal weakness SKIN: No rash or significant lesions EKG RADIOLOGY XR HAND RT 3V Final Result by User, [id number] (02/01 2306) Examination: Right hand 3 views Exam Date/Time: 02/01/2023 10:52 PM Reason For Exam: trauma Right hand present pain and swelling after punching today Comparison: Right hand radiographs 09/12/2022 Technique: PA, oblique, and lateral views of the right hand were obtained. Findings: No fracture or dislocation. Joint spaces preserved. No radiopaque foreign bodies. No destructive osseous lesions. ===== IMPRESSION:===== 1. No acute osseous abnormalities. Referred By: Interpreted By: German Basilio MD, 02/01/2023 11:04 PM LABS No results found for this visit on 02/01/23. ED MEDICATIONS Medications HYDROcodone-acetaminophen (NORCO) 5-325 MG tablet 2 tablet (2 tablets Oral Given 02/01/232302) PROCEDURES Procedures CONSULTS: ED COURSE & MEDICAL DECISION MAKING MDM Amount and/or Complexity of Data Reviewed Tests in the radiology section of CPT??: reviewed ED Course as of 02/01/232317Feb 01, 20232307 X-ray report is noted. [WM] 2316 X-ray report is noted and normal. [WM] ED Course User Index [WM] Sanchez Lara MD Patient will be medicated for pain and will obtain diagnostic imaging to hopefully rule out fracture. In fact x-ray is normal. Therefore patient is recommended to ice elevate minimize use of the hand and I will prescribe pain medication. Expect him to improve over the next several days. FINAL IMPRESSION SNOMED CT(R) 1. Contusion of right hand CONTUSION OF RIGHT HAND Aldo Montenegro MD [address] [facility] [id number] As needed, If symptoms worsen New Prescriptions HYDROCODONE-ACETAMINOPHEN (NORCO) 5-325 MG TABLET Take 1-2 tablets by mouth every 6 (six) hours as needed. Indications: Acute Pain < 3 Day Supply Sanchez Lara MD 02/01/232317 documented in this encounter Plan of Treatment Not on file documented as of this encounter Procedures Procedure Name Priority Date/Time Associated Diagnosis Comments XR HAND RT 3V STAT 02/01/2023 11:00 PM CDT documented in this encounter Results * XR HAND RT 3V (02/01/2023 11:00 PM CDT) Anatomical Region Laterality Modality Hand Radiographic Britney ging 02/01/2023 11:0 4 PM CDT Impressions 02/01/2023 11:05 PM CDT IMPRESSION:===== 1. ??No acute osseous abnormalities. Referred By: ?? Interpreted By: German Basilio MD, 02/01/2023 11:04 PM Narrative 02/01/2023 11:05 PM CDT Examination: Right hand 3 views Exam Date/Time: 02/01/2023 10:52 PM Reason For Exam: ??trauma ?? Right hand present pain and swelling after punching today Comparison: Right hand radiographs 09/12/2022 Technique: PA, oblique, and lateral views of the right hand were obtained. Findings: No fracture or dislocation. ??Joint spaces preserved. ??No radiopaque foreign bodies. ??No destructive osseous lesions. ===== Procedure Note German Basilio MD - 02/01/2023 Examination: Right hand 3 views Exam Date/Time: 02/01/2023 10:52 PM Reason For Exam: trauma Right hand present pain and swelling after punching today Comparison: Right hand radiographs 09/12/2022 Technique: PA, oblique, and lateral views of the right hand wereobtained. Findings: No fracture or dislocation. Joint spaces preserved. Noradiopaque foreign bodies. No destructive osseous lesions. ===== IMPRESSION:===== 1. No acute osseous abnormalities. Referred By: Interpreted By: German Basilio MD, 02/01/2023 11:04 PM Sanchez Lara MD GENERAL IMAGING Final Result documented in this encounter Visit Diagnoses Diagnosis Contusion of right hand- Primary Contusion of hand(s) documented in this encounter Administered Medications Inactive Administered Medications - up to 3 most recent administrations Medication Order MAR Action Action Date Dose Rate Site HYDROcodone-acetaminophen (NORCO) 5-325 MG tablet 2 tablet 2 tablet, Oral, Once, 1 dose, On Sat02/01/23 at 2300, Maximum dose of acetaminophen is 4000 mg from all sources in 24 hours. Given 02/01/2023 11:03 PM CDT 2 tablets documented in this encounter Active and Recently Administered Medications Times are shown in CDT. Scheduled Medication Order 01/30/2023 01/31/2023 02/01/2023 HYDROcodone-acetaminophen (NORCO) 5-325 MG tablet 2 tablet (COMPLETED) 2 tablet, Oral, Once, 1 dose, On Sat02/01/23 at 2300, Maximum dose of acetaminophen is 4000 mg from all sources in 24 hours. 2303 (Given - Provid er: Lavern Taylor RN) documented in this encounter Care Teams Pet Ambassador Relationship Specialty Start Date End Date Aldo Montenegro MD [address] [place] [address] PCP - General INTERNAL MEDICINE 10/21/21 documented as of this encounter
--- OUTSIDE RECORDS SUMMARY | 2024-10-14 00:43 | XMS_ITS | Encounter Summary ---
Author Organization [facility] Address [address] [place] [address]. [place] [address] [place] [address] Care Team Providers Care Pipe Line Maintenance Supervisor Name Role Phone Aldo Montenegro MD Primary Care Provider [phone] Reason for Referral * Imaging (Emergency) - Closed Specialty Diagnoses / Procedures Referred By Contac t Referred To Contact RADIOLOGY Procedures CT ABD+PEL W IV CON ONLY Davey Walker DO Phone: tel: fax: Referral ID Status Reason Start Date Expiration Date Visits Re quested Visits Authorized [id number] Closed 04/20/2023 04/20/2024 1 1 Reason for Visit * Reason Comments Vomiting Suicidal Ideation Encounter Details Date Type Department Care Team (Late st Contact Info) Description 04/20/2023 3:08 AM CDT - 04/20/2023 2:09 PM CDT Emergency [facility] [address] [place] [address] Davey Walker DO [address] [place], [place] [address] Janki Wesley MD [address] [place] [id number] Vomiting; Suicidal Ideation Discharge Disposition: Left Against Medical Advice Social History Tobacco Use Types Packs/Day Years [...] on file documented as of this encounter Last Filed Vital Signs Vital Sign Reading Time Taken Comments Blood Pressure 115/73 04/20/2023 5:16 AM CDT Pulse 99 04/20/2023 3:15 AM CDT Temperature 36.9 ??C (98.5 ??F) 04/20/2023 3:15 AM CD T Respiratory Rate 16 04/20/2023 3:15 AM CDT Oxygen Saturation 100% 04/20/2023 6:30 AM CDT Inhaled Oxygen Concentration - - Weight 88.5 kg (195 lb 1.7 oz) 04/20/2023 3:15 A M CDT Height 188 cm (6' 2 ) 04/20/2023 3:15 AM CDT Body Mass Index 25.05 04/20/2023 3:15 AM CDT documented in this encounter Medications at Time [...] as of this encounter ED Notes * Magaly Chavarria RN - 04/20/2023 1:00 PM CDT Hat Finisher reviews Cathy's evaluation. Cathy advises pt has told her he is not suicidal, and would liketo go home. States pt continues to wish to sign out AMA for medical issues. Would like to review ptdesire for discharge with assembly instructions writer in order to provide understanding. * Magaly Chavarria RN - 04/20/2023 12:19 PM CDT Cathy from [facility] is here to see pt. * Afsaneh Rodriguez RN - 04/20/2023 12:18 PM CDT Patient classified as moderate suicide risk. [facility] at bedside. 15 min checks switched to every 60 minutes. Patient is still on suicide precautions and requires 1 to 1 observation at this time. * Magaly Chavarria RN - 04/20/2023 11:31 AM CDT Hat Finisher speaks with Cathy from [facility]. Hat Finisher advises Cathy of pt medical presentation and his suicidal risk eval. Hat Finisher request Mental Health Evaluation per pt request, as he does not wish to be transferred for his medical needs. Cathy advises she will come to evaluate. * Janki Wesley MD - 04/20/2023 7:56 AM CDT Emergency Department Assumed Care Note Patient signed out to me by Dr Walker. Briefly, Jason London is a 32-year-old male is being evaluated for abdominal pain. Vitals: 04/20/23 0630 BP: Pulse: Resp: Temp: SpO2: 100% ELECTROCARDIOGRAMS: No results found for this visit on 04/20/23. Thus far, studies reveal: See below Pending studies include: Imaging studies Plan from sign out is: Follow-up imaging studies and determine disposition. Progress notes: Labs Reviewed CBC W/DIFF AUTOMATED - Abnormal; Notable for the following components: Result Value RBC 4.36 (*) ABS. LYMPHOCYTES 0.31 (*) All other components within normal limits COMPREHENSIVE METABOLIC PANEL - Abnormal; Notable for the following components: POTASSIUM S/P/B 3.1 (*) GLUCOSE 143 (*) BUN 30 (*) ALKALINE PHOSPHATASE S/P/B 133 (*) AST 924 (*) ALT 618 (*) GFR ESTIMATE 82 (*) All other components within normal limits LIPASE - Abnormal; Notable for the following components: LIPASE 15 (*) All other components within normal limits MAGNESIUM - Abnormal; Notable for the following components: MAGNESIUM 1.7 (*) All other components within normal limits ACETAMINOPHEN - Abnormal; Notable for the following components: ACETAMINOPHEN S/P/B 0.0 (*) All other components within normal limits DRUG SCREEN RAPID - Abnormal; Notable for the following components: CANNABINOIDS SCREEN (U) POSITIVE (*) METHAMPHETAMINE SCREEN (U) POSITIVE (*) AMPHETAMINE SCREEN (U) POSITIVE (*) All other components within normal limits ETHANOL SALICYLATE CT ABD+PEL W IV CON ONLY Final Result by User, [email or web address] (04/20 614) EXAM: CT ABD+PEL W CON INDICATION: Abdominal pain with nausea and vomiting. TECHNIQUE: CT of the abdomen and pelvis was performed, from lung bases to the pubic symphysis. Patient received 93 cc Isovue-370 with no adverse reaction. Multiplanar reformatted images were obtained and reviewed. A radiation dose lowering technique was used for this procedure, which may include, but is not limited to, dose reduction technique, automated exposure control, the use of iterative reconstruction, ALARA (As Low As Reasonably Achievable) techniques, and Image Gently techniques. COMPARISON EXAM: None FINDINGS: Lung bases are clear. There is diffuse periportal edema and small amount of fluid around the gallbladder. No gallstones or gallbladder wall thickening. There is some stranding or induration of the fat around the head of the pancreas, extrahepatic biliary structures and the duodenal C-loop. No choledocholithiasis. These findings likely reflect acute pancreatitis, cholangitis and/or duodenitis. Clinical and lab correlation recommended. There is no evidence of an organized discrete fluid collection, abscess or pancreatic parenchymal necrosis. Normal size spleen. The adrenal glands are unremarkable. No renal mass or hydronephrosis. Urinary bladder is partially collapsed. The prostate and seminal vesicles are unremarkable for the patient's age. There is no bowel obstruction, pneumatosis or free air. There is thickening or pseudo thickening of the descending and sigmoid colon with a possible mild underlying infectious or inflammatory colitis to BE considered. There are a few colonic diverticula with no surrounding stranding to suggest diverticulitis. Normal appendix. There are scattered borderline probable reactive retroperitoneal lymph nodes. Normal caliber abdominal aorta. Skeletal structures are intact. IMPRESSION: PERIPORTAL EDEMA WITH FLUID AROUND THE GALLBLADDER AND MILD STRANDING AROUND THE BILIARY TREE, DUODENAL C-LOOP AND THE PANCREATIC HEAD. CONSIDERATIONS INCLUDE PANCREATITIS, CHOLANGITIS AND/OR DUODENITIS. THICKENING OR PSEUDOCYST THICKENING OF THE RELATIVELY COLLAPSED DESCENDING AND SIGMOID COLON. MILD INFECTIOUS OR INFLAMMATORY COLITIS IS NOT ENTIRELY EXCLUDED. A FEW COLONIC DIVERTICULA WITH NO DIVERTICULITIS. PROBABLE BORDERLINE PROMINENT REACTIVE RETROPERITONEAL LYMPH NODES. Referred By: Interpreted By: Clarence Mcnally MD, 04/20/2023 5:37 AM ED Course as of 05/11/23 2249 Sat Apr 20, 2023 0512 MAGNESIUM(!): 1.7 [JW] 0512 POTASSIUM S/P/B(!): 3.1 [JW] 0512 ALKALINE PHOSPHATASE S/P/B(!): 133 [JW] 0512 AST(!): 924 [JW] 0512 ALT(!): 618 [JW] 0654 CT ABD+PEL W IV CON ONLY [JW] 0655 PERIPORTAL EDEMA WITH FLUID AROUND THE GALLBLADDER AND MILD STRANDING AROUND THE BILIARY TREE,DUODENAL C-LOOP AND THE PANCREATIC HEAD. CONSIDERATIONS INCLUDE PANCREATITIS, CHOLANGITIS AND/OR DUODENITIS. THICKENING OR PSEUDOCYST THICKENING OF THE RELATIVELY COLLAPSED DESCENDING AND SIGMOID COLON. MILD INFECTIOUS OR INFLAMMATORY COLITIS IS NOT ENTIRELY EXCLUDED. A FEW COLONIC DIVERTICULA WITH NO DIVERTICULITIS. PROBABLE BORDERLINE PROMINENT REACTIVE RETROPERITONEAL LYMPH NODES [JW] 0658 CT ABD+PEL W IV CON ONLY [JW] [address] Serrano, GI service [facility]. Is excepted the patient for evaluation, but as the patient has not previously been established with their GI service,patient will need to be admitted through the hospitalist. Awaiting callback. [JW] 0756 Care transitioned to de at shift change by Dr. Walker. Call from [facility] transfer center. Spoke to Dr. Mercer the hospitalist on-call who agreed to accept patient for admission and transfer. Patient had imaging studies suggestive of possible cholecystitis or cholangitis. We will commence patient on Zosyn IV. [AK] ED Course User Index [AK] Janki Wesley MD [JW] Davey Walker DO Clinical impression: SNOMED CT(R) 1. Cholangitis CHOLANGITIS 2. Hypokalemia HYPOKALEMIA 3. Hypomagnesemia HYPOMAGNESEMIA 4. Methamphetamine abuse ([facility]) METHAMPHETAMINE ABUSE 5. Suicidal ideation SUICIDAL THOUGHTS Discharge Medication List as of 04/20/2023 2:09 PM Disposition: AMA Janki Wesley MD 05/11/2023 Janki Wesley MD 05/11/23 225 * Magaly Chavarria RN - 04/20/2023 7:[address] Garcia is speaking with the hospitalist from [facility]. * Raghav Atkinson, Nurse Mental Health Program Manager II - 04/20/2023 3:42 AM CDT PT arrives to ED with c/c vomiting. PT was found on the floor in the lobby trying to vomit. PT was then brought back and upon arrival PT was complaining of nausea and vomiting and a headache. PT rated headache 5/10. PT also states he did meth about 2 hours ago. PT also explained he felt suicidal and had a plan in the past to shoot myself in the head' but does not actively have a plan now. PT wasthen moved rooms, belongings were taken per facility protocol, and PT was put in gown. Cosigned by Gudelia Lo RN at 04/20/2023 3:54 AM CDT documented in this encounter Plan of Treatment Not on file documented as of this encounter Procedures Procedure Name Priority Date/Time Associated Diagnosis Comments DRUG SCREEN RAPID STAT 04/20/2023 11: [address] ABD+PEL W CON STAT 04/20/2023 5:33 AM CDT COMPREHENSIVE METABOLIC PANEL STAT 04/20/2023 4:07 AM CDT CBC W/DIFF AUTOMATED STAT 04/20/2023 4:07 AM CDT MAGNESIUM STAT 04/20/2023 4:07 AM CDT LIPASE STAT 04/20/2023 4:07 AM CDT SALICYLATE STAT 04/20/2023 4:07 AM CDT ETHANOL STAT 04/20/2023 4:07 AM CDT ACETAMINOPHEN STAT 04/20/2023 4:07 AM CDT documented in this encounter Results * (ABNORMAL) DRUG SCREEN RAPID (04/20/2023 11:56 AM CDT) CANNABINOIDS SCREEN (U) POSITIVE(A) NEGATIVE 04/20/2023 1:51 PM CDT [facility] PHENCYCLIDINE PCP (U) NEGATIVE NEGATIVE 04/20/2023 1:51 PM CDT [facility] COCAINE METABOLITES (U) NEGATIVE NEGATIVE 04/20/2023 1:51 PM CDT [facility] METHAMPHETAMINE SCREEN (U) POSITIVE(A) NEGATIVE 04/20/2023 1:51 PM CDT [facility] OPIATE SCREEN (U) NEGATIVE NEGATIVE 023 1:51 PM CDT [facility] AMPHETAMINE SCREEN (U) POSITIVE(A) NEGATIVE 04/20/2023 1:51 PM CDT [facility] BENZODIAZEPINES SCREEN (U) NEGATIVE NEGATIVE 04/20/2023 1:51 PM CDT [facility] TRICYCLIC ANTIDEPRESSANT SCREEN (U) NEGATIVE NEGATIVE 04/20/2023 1:51 PM CDT [facility] METHADONE (U) NEGATIVE NEGATIVE 04/20/2023 1:51 PM CDT [facility] BARBITURATES SCREEN (U) NEGATIVE NEGATIVE 04/20/2023 1:51 PM CDT [facility] OXYCODONE SCREEN (U) NEGATIVE NEGATIVE 04/20/2023 1:51 PM CDT [facility] PROPOXYPHENE SCREEN (U) NEGATIVE NEGATIVE 04/20/2023 1:51 PM CDT [facility] URINE TOX COMMENT THIS TEST METHODOLOGY IS DESIGNED AND OFFERED A RAPID TURNAROUND, QUALITATIVE SCREENING PROCEDURE TO AID IN THE IMMEDIATE MEDICAL ASSESSMENT OF PATIENTS SUSPECTED OF SUBSTANCE ABUSE. 04/20/2023 11:55 AM CDT [facility] Comment: CLINICAL CONSIDERATION AND PROFESSIONAL JUDGMENT MUST BE APPLIED TO ANY DRUG OF ABUSE TEST RESULT, BOTH POSITIVE AND NEGATIVE. CONFIRMATORY QUANTITATIVE RESULTS ARE AVAILABLE THROUGH OUR REFERENCE LABORATORY. URINE SPECIMEN / Unknown 04/20/2023 11:56 AM CDT us Janki Wesley MD URINE ORDERABLES Final Re sult [facility] [address] [place] [address], * CT ABD+PEL W IV CON ONLY (04/20/2023 5:33 AM CDT) Anatomical Region Laterality Modality Abdomen Computed Tomogra phy 04/20/2023 5:37 AM CDT Impressions 04/20/2023 6:13 AM CDT IMPRESSION: PERIPORTAL EDEMA WITH FLUID AROUND THE GALLBLADDER AND MILD STRANDING AROUND THE BILIARY TREE, DUODENAL C-LOOP AND THE PANCREATIC HEAD. ??CONSIDERATIONS INCLUDE PANCREATITIS, CHOLANGITIS AND/OR DUODENITIS. THICKENING OR PSEUDOCYST THICKENING OF THE RELATIVELY COLLAPSED DESCENDING AND SIGMOID COLON. ??MILD INFECTIOUS OR INFLAMMATORY COLITIS IS NOT ENTIRELY EXCLUDED. ??A FEW COLONIC DIVERTICULA WITH NO DIVERTICULITIS. PROBABLE BORDERLINE PROMINENT REACTIVE RETROPERITONEAL LYMPH NODES. Referred By: ?? Interpreted By: Clarence Mcnally MD, 04/20/2023 5:37 AM Narrative 04/20/2023 6:13 AM CDT EXAM: CT ABD+PEL W CON INDICATION: Abdominal pain with nausea and vomiting. TECHNIQUE: CT of the abdomen and pelvis was performed, from lung bases to the pubic symphysis. ??Patient received 93 cc Isovue-370 with no adverse reaction. ??Multiplanar reformatted images were obtained and reviewed. A radiation dose lowering technique was used for this procedure, which may include, but is not limited to, dose reduction technique, automated exposure control, the use of iterative reconstruction, ALARA (As Low As Reasonably Achievable) techniques, and Image Gently techniques. COMPARISON EXAM: None FINDINGS: Lung bases are clear. ??There is diffuse periportal edema and small amount of fluid around the gallbladder. ??No gallstones or gallbladder wall thickening. ??There is some stranding or induration of the fat around the head of the pancreas, extrahepatic biliary structures and the duodenal C-loop. ??No choledocholithiasis. ??These findings likely reflect acute pancreatitis, cholangitis and/or duodenitis. ??Clinical and lab correlation recommended. ??There is no evidence of an organized discrete fluid collection, abscess or pancreatic parenchymal necrosis. ??Normal size spleen. ??The adrenal glands are unremarkable. ??No renal mass or hydronephrosis. ??Urinary bladder is partially collapsed. ??The prostate and seminal vesicles are unremarkable for the patient's age. ??There is no bowel obstruction, pneumatosis or free air. ??There is thickening or pseudo thickening of the descending and sigmoid colon with a possible mild underlying infectious or inflammatory colitis to BE considered. ??There are a few colonic diverticula with no surrounding stranding to suggest diverticulitis. ??Normal appendix. ??There are scattered borderline probable reactive retroperitoneal lymph nodes. ??Normal caliber abdominal aorta. ??Skeletal structures are intact. Procedure Note Clarence Mcnally MD - 04/20/2023 EXAM: CT ABD+PEL W CON INDICATION: Abdominal pain with nausea and vomiting. TECHNIQUE: CT of the abdomen and pelvis was performed, from lung bases tothe pubic symphysis. Patient received 93 cc Isovue-370 with no adversereaction. Multiplanar reformatted images were obtained and reviewed. A radiation dose lowering technique was used for this procedure, which mayinclude, but is not limited to, dose reduction technique, automatedexposure control, the use of iterative reconstruction, ALARA (As Low AsReasonably Achievable) techniques, and Image Gently techniques. COMPARISON EXAM: None FINDINGS: Lung bases are clear. There is diffuse periportal edema andsmall amount of fluid around the gallbladder. No gallstones orgallbladder wall thickening. There is some stranding or induration of thefat around the head of the pancreas, extrahepatic biliary structures andthe duodenal C-loop. No choledocholithiasis. These findings likelyreflect acute pancreatitis, cholangitis and/or duodenitis. Clinical andlab correlation recommended. There is no evidence of an organizeddiscrete fluid collection, abscess or pancreatic parenchymal necrosis.Normal size spleen. The adrenal glands are unremarkable. No renal massor hydronephrosis. Urinary bladder is partially collapsed. The prostateand seminal vesicles are unremarkable for the patient's age. There is nobowel obstruction, pneumatosis or free air. There is thickening or pseudothickening of the descending and sigmoid colon with a possible mildunderlying infectious or inflammatory colitis to BE considered. There area few colonic diverticula with no surrounding stranding to suggestdiverticulitis. Normal appendix. There are scattered borderline probablereactive retroperitoneal lymph nodes. Normal caliber abdominal aorta.Skeletal structures are intact. IMPRESSION: PERIPORTAL EDEMA WITH FLUID AROUND THE GALLBLADDER AND MILDSTRANDING AROUND THE BILIARY TREE, DUODENAL C-LOOP AND THE PANCREATICHEAD. CONSIDERATIONS INCLUDE PANCREATITIS, CHOLANGITIS AND/ORDUODENITIS. THICKENING OR PSEUDOCYST THICKENING OF THE RELATIVELY COLLAPSED DESCENDINGAND SIGMOID COLON. MILD INFECTIOUS OR INFLAMMATORY COLITIS IS NOTENTIRELY EXCLUDED. A FEW COLONIC DIVERTICULA WITH NO DIVERTICULITIS. PROBABLE BORDERLINE PROMINENT REACTIVE RETROPERITONEAL LYMPH NODES. Referred By: Interpreted By: Clarence Mcnally MD, 04/20/2023 5:37 AM us Davey Walker DO CT Final Result * SALICYLATE (04/20/2023 4:07 AM CDT) SALICYLATES 3.3 2.8 - 20.0 MG/DL 04/20/2023 7:28 AM CDT [facility] 04/20/2023 4:07 AM CDT us Davey Walker DO LABORATORY Final Result [facility] [address] [place] [address], [place] [phone] * (ABNORMAL) ACETAMINOPHEN (04/20/2023 4:07 AM CDT) ACETAMINOPHEN S/P/B 0.0(L) 10.0 - 30.0 MCG/ML 04/20/2023 7:28 AM CDT [facility] 04/20/2023 4:07 AM CDT us Davey Walker DO LABORATORY Final Result Performing Organization Address [facility]/ZIP Co de Phone Number [facility] [address] [place] [address], [place] [phone] * ETHANOL (04/20/2023 4:07 AM CDT) ALCOHOL S/P/B <0.003 <0.003 G/DL 04/20/2023 7:29 AM CDT [facility] 04/20/2023 4:07 AM CDT us Davey Walker DO LABORATORY Final Result Performing Organization Address [facility]/ZIP Co de Phone Number [facility] [address] [place] [address], [place] [phone] * (ABNORMAL) MAGNESIUM (04/20/2023 4:07 AM CDT) MAGNESIUM 1.7(L) 1.8 - 2.4 MG/DL 04/20/2023 4:50 AM CDT [facility] 04/20/2023 4:0 7 AM CDT us Davey Walker DO LABORATORY Final Result Performing Organization Address [facility]/ZIP Co de Phone Number [facility] [address] [place] [address], * (ABNORMAL) LIPASE (04/20/2023 4:07 AM CDT) LIPASE 15(L) 16 - 77 UNITS/L 04/20/2023 4:50 AM CDT [facility] 04/20/2023 4:07 AM CDT us Davey Walker DO LABORATORY Final Result Performing Organization Address [facility] Co de Phone Number [facility] [address] [place] [address], * (ABNORMAL) COMPREHENSIVE METABOLIC PANEL (04/20/2023 4:07 AM CDT) SODIUM S/P/B 136 136 - 145 MMOL/L 04/20/2023 4:50 AM CDT [facility] POTASSIUM S/P/B 3.1(L) 3.5 - 5.1 MMOL/L 04/20/2023 4:50 AM CDT [facility] CHLORIDE S/P/B 103 98 - 107 MMOL/L 04/20/2023 4:50 AM CDT [facility] CO2 26.3 21.0 - 32.0 MMOL/L 04/20/2023 4:50 AM CDT [facility] GLUCOSE 143(H) 70 - 99 MG/DL 04/20/2023 4:50 AM CDT [facility] Comment: FASTING GLUCOSE 100 TO 125 MG/DL IS CONSISTENT WITH IMPAIRED FASTING GLUCOSE. FASTING GLUCOSE >125 MG/DL IS CONSISTENT WITH DIABETES. RANDOM GLUCOSE >200 MG/DL WITH HYPERGLYCEMIC SYMPTOMS IS CONSISTENT WITH DIABETES. PER ADA GUIDELINES BUN 30(H) 6 - 24 MG/DL 04/20/2023 4:50 AM [facility] CREATININE S/P/B 1.22 0.70 - 1.30 MG/DL 04/20/2023 4:50 AM [facility] CALCIUM S/P/B 8.5 8.4 - 10.5 MG/DL 04/20/2023 4:50 AM [facility] BILIRUBIN TOTAL S/P/B 0.6 0.2 - 1.0 MG/DL 04/20/2023 4:50 AM [facility] Comment: THIS ASSAY IS NOT RECOMMENDED FOR PATIENTS UNDERGOING TREATMENT WITH ELTROMBOPAG DUE TO THE POTENTIAL FOR FALSELY ELEVATED RESULTS. ALKALINE PHOSPHATASE S/P/B 133(H) 45 - 115 U/L 04/20/2023 4:50 AM [facility] AST 924(H) 15 - 37 U/L 04/20/2023 4:50 AM [facility] ALT 618(H) 16 - 63 U/L 04/20/2023 4:50 AM [facility] TOTAL PROTEIN S/P/B 6.9 6.4 - 8.2 G/DL 04/20/2023 4:50 AM [facility] ALBUMIN S/P/B 3.6 3.4 - 5.0 G/DL 04/20/2023 4:50 AM [facility] ANION GAP 6.7 5.0 - 15.0 MMOL/L 04/20/2023 4:50 AM [facility] OSMOLALITY (CALC) 291 MOSM/KG 023 4:50 AM [facility] Comment:REFERENCE RANGE NOT ESTABLISHED GFR ESTIMATE 82(L) >89 ML/MIN/1. 73 M2 04/20/2023 4:50 AM [facility] GFR NOTES GFR REFERENCE S: 04/20/2023 4:50 AM CDT [facility] Comment: THE ESTIMATED GFR IS CALCULATED USING THE 2020 CKD-EPI EQUATION. THE FOLLOWING CATEGORIES FOR GRADING RENAL FUNCTION ARE RECOMMENDED BY THE INTERNATIONAL SOCIETY OF NEPHROLOGY (KDIGO 2012 CLINICAL PRACTICE GUIDELINE). G1,NORMAL OR HIGH: >89 ml/min/1.73 m2 G2,MILDLY DECREASED: 60-89 ml/min/1.73 m2 G3A,MILDLY TO MODERATELY DECREASED: 45-59 ml/min/1.73 m2 G3B,MODERATELY TO SEVERELY DECREASED: 30-44 ml/min/1.73 m2 G4,SEVERELY DECREASED: 15-29 ml/min/1.73 m2 G5,KIDNEY FAILURE: <15 ml/min/1.73 m2 04/20/2023 4:07 AM CDT us Davey Walker DO LABORATORY Final Result [facility] [address] [place] [address], * (ABNORMAL) CBC W/DIFF AUTOMATED (04/20/2023 4:07 AM CDT) WBC 4.52 4.00 - 10.80 x10'3/uL 04/20/2023 4:14 AM CDT [facility] RBC 4.36(L) 4.50 - 6.10 x10'6/uL 04/20/2023 4:14 AM CDT [facility] HGB 13.0 13.0 - 18.0 G/DL 04/20/2023 4:14 AM CDT [facility] HCT 38.4 37.0 - 52.0 % 04/20/2023 4:14 AM CDT [facility] MCV 88.1 78.0 - 100.0 FL 04/20/2023 4:14 AM CDT [facility] MCH 29.8 27.0 - 31.0 PG 04/20/2023 4:14 AM CDT [facility] MCHC 33.9 33.0 - 36.0 G/DL 04/20/2023 4:14 AM CDT [facility] RDW 12.8 11.5 - 14.5 % 04/20/2023 4:14 AM CDT [facility] PLT 181 150 - 350 x10'3/uL 04/20/2023 4:14 AM CDT [facility] MPV 9.0 7.4 - 10.4 FL 04/20/2023 4:14 AM CDT [facility] CBC COMMENT NORMAL REFERENCE RANGE NOT ESTABLISHED FOR THE PROPORTIONAL LEUKOCYTE DIFFERENTIAL. 04/20/2023 4:14 AM CDT [facility] NEUTROPHILS % 91.6 % 04/20/2023 4:14 AM CDT [facility] LYMPHOCYTES % 6.9 % 04/20/2023 4:14 AM CDT [facility] MONOCYTES % 0.4 % 04/20/2023 4:14 AM CDT [facility] EOSINOPHILS % 0.7 % 04/20/2023 4:14 AM CDT [facility] BASOPHILS % 0.2 % 04/20/2023 4:14 AM CDT [facility] IMMATURE GRANS % 0.2 % 04/20/20 4:14 AM CDT [facility] NRBC 0.0 % 04/20/2023 4:14 AM CDT [facility] ABS. NEUTROPHILS 4.14 1.60 - 8.30 x10'3/uL 04/20/2023 4:14 AM CDT [facility] ABS. LYMPHOCYTES 0.31(L) 0.80 - 4.70 x10'3/uL 04/20/2023 4:14 AM CDT [facility] ABS. MONOCYTES 0.02 0.00 - 1.50 x10'3/uL 04/20/2023 4:14 AM CDT [facility] ABS. EOSINOPHILS 0.03 0.00 - 0.40 x10'3/uL 04/20/2023 4:14 AM CDT [facility] ABS. BASOPHILS 0.01 0.00 - 0.20 x10'3/uL 04/20/2023 4:14 AM CDT [facility] ABS. IMMATURE GRANULOCYTES 0.01 0.00 - 0.03 x10'3/uL 04/20/2023 4:14 AM CDT [facility] ABS. NUCLEATED RBC'S 0.00 0.00 x10'3/uL 04/20/2023 4:14 AM CDT [facility] 04/20/2023 4:07 AM CDT Davey Walker DO LABORATORY Final Result [facility] [address] [place] [address], documented in this encounter Visit Diagnoses Diagnosis Cholangitis ([facility])- Primary Cholangitis Hypokalemia Hypopotassemia Hypomagnesemia Disorders of magnesium metabolism Methamphetamine abuse ([facility]/HCC) Nondependent amphetamine or related acting sympathomimetic abuse, unspecified Suicidal ideation documented in this encounter Administered Medications Inactive Administered Medications - up to 3 most recent administrations Medication Order MAR Action Action Date Dose Rate Site iopamidol (ISOVUE-370) 76 % injection 93 mL 93 mL, Intravenous, IMG once as needed, Contrast, 1 dose, Starting on 04/20/23 at 0533, Until 04/20/23 at 0533 Given 04/20/2023 5:33 AM CDT 93 mLs Left Arm magnesium oxide (MAG-OX) tablet 800 mg 800 mg, Oral, Once, 1 dose, On 04/20/23 at 0515 Given 04/20/2023 5:44 AM CDT 800 mg ondansetron (ZOFRAN) injection 4 mg 4 mg, Intravenous, Once, 1 dose, On 04/20/23 at 0400, IV push over 2-5 minutes. Given 04/20/2023 4:15 AM CDT 4 mg piperacillin-tazobactam (ZOSYN) 3.375 g in sodium chloride 0.9 % 50 mL IVPB 3.375 g, Intravenous, Administer over 30 Minutes, Once, 1 dose, On 04/20/23 at 0800 New Bag 04/20/2023 8:31 AM CDT 3.375 g 100 mL/hr potassium chloride CR (KLOR-CON M) tablet 40 mEq 40 mEq, Oral, Once, 1 dose, On 04/20/23 at 0515, Do not chew, crush, or suck on tablet. May break in half. May dissolve whole tablet in 120 mL of water and drink immediately. Given 04/20/2023 5:44 AM CDT 40 mEq sodium chloride 0.9% bolus infusion 1,000 mL 1,000 mL, Intravenous, Administer over 30 Minutes, Once, 1 dose, On 04/20/23 at 0400 New Bag 04/20/2023 4:16 AM CDT 1,000 mLs documented in this encounter Active and Recently Administered Medications Times are shown in CDT. Scheduled Medication Order 04/18/2023 04/19/2023 04/20/2023 magnesium oxide (MAG-OX) tablet 800 mg (COMPLETED) 800 mg, Oral, Once, 1 dose, On 04/20/23 at 0515 0544 (Given - Provid er: Gudelia Lo RN) nicotine (NICODERM CQ) 21 MG/24HR patch 21 mg 21 mg (1 patch), Transdermal, Administer over 24 Hours, Once, 1 dose, On 04/20/23 at 1345 1409 (Not Given - Pr ovider: Afsaneh Rodriguez RN - Reason: Patient/family declined) ondansetron (ZOFRAN) injection 4 mg (COMPLETED) 4 mg, Intravenous, Once, 1 dose, On 04/20/23 at 0400, IV push over 2-5 minutes. 0415 (Given - Provid er: Gudelia Lo RN) piperacillin-tazobactam (ZOSYN) 3.375 g in sodium chloride 0.9 % 50 mL IVPB (COMPLETED) 3.375 g, Intravenous, Administer over 30 Minutes, Once, 1 dose, On 04/20/23 at 0800 0831 (New Bag - Prov ider: Magaly Chavarria RN)0901 (Infusion Stop Time - Provider: Afsaneh Rodriguez RN) potassium chloride CR (KLOR-CON M) tablet 40 mEq (COMPLETED) 40 mEq, Oral, Once, 1 dose, On 04/20/23 at 0515, Do not chew, crush, or suck on tablet. May break in half. May dissolve whole tablet in 120 mL of water and drink immediately. 0544 (Given - Provid er: Gudelia Lo, RN) sodium chloride 0.9% bolus infusion 1,000 mL (COMPLETED) 1,000 mL, Intravenous, Administer over 30 Minutes, Once, 1 dose, On 04/20/23 at 0400 0416 (New Bag - Prov ider: Gudelia Lo, RN)0609 (Infusion Stop Time - Provider: Gudelia Lo, RN) PRN Medication Order 04/18/2023 04/19/2023 04/20/2023 iopamidol (ISOVUE-370) 76 % injection 93 mL (COMPLETED) 93 mL, Intravenous, IMG once as needed, Contrast, 1 dose, Starting on 04/20/23 at 0533, Until 04/20/23 at 0533 0533 (Given - Provid er: Eligio Mcmullen, RTR) documented in this encounter Care Teams Pipe Line Maintenance Supervisor Relationship Specialty Start Date End Date Aldo Montenegro MD [address] [place] [id number] PCP - General INTERNAL MEDICINE 10/21/21 documented as of this encounter
--- OUTSIDE RECORDS SUMMARY | 2024-10-14 00:43 | XMS_ITS | Encounter Summary ---
Author Organization [facility] Address [address] [place] [address]. [place], [place] [id number] [place] [address] Care Team Providers Care Stud Beef Cattle Farmer Name Role Phone Aldo Montenegro MD Primary Care Provider [phone] Encounter Details Date Type Department Care Team (Latest Contact Info) Description 12/25/2021 Travel Social History Tobacco Use Types Packs/Day [...] suspected to have Coronavirus/COVID-19? No / Unsure 12/25/2021 5:07 PM CDT documented as of this encounter Plan of Treatment Not on file documented as of this encounter Visit Diagnoses Not on filedocumented in this encounter Care Teams Stud Beef Cattle Farmer Relationship Specialty Start Date End Date Aldo Montenegro MD [address] [place] [address] PCP - General INTERNAL MEDICINE 10/21/21 documented as of this encounter
--- OUTSIDE RECORDS SUMMARY | 2024-10-14 00:43 | XMS_ITS ---
Author Organization [facility] Address [address] [place] [address] Care Team Providers Care Balance Wheel Motion Inspector Name Role Phone Jennifer Contreras Primary Care Provider Leslie Koehler [phone] Social History Sex Assigned At : Social History Observation Description Sex Assigned At Male Encounters Encounter Location Date Provider Diagnosis [place] [address] [facility] [place] [address] 09/29/2024 Leslie Koehler Plan Of Treatment No Information Progress Notes * Jason LONDONDOB:1990 (34 yo M)Acc No.[id number]:09/29/2024 Patient:?Jason LONDON :1990???Age:34 Y???Sex:Male Address:[address] [place], [address] * true * Date:? Generated for Matilde conway/Yohan/eTransmitting on:?10/14/2024 12:43 AM COUNTY TAX ASSESSOR
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
--- OUTSIDE RECORDS SUMMARY | 2024-10-14 00:43 | XMS_ITS | Encounter Summary ---
Author Organization [facility] Address [address] [place] [address]. [place], [place] [id number] [place] [address] Care Team Providers Care Concrete Pipe Machine Operator Name Role Phone Aldo Montenegro MD Primary Care Provider [phone] Reason for Visit * Reason Comments Headache Flu like symptoms, Encounter Details Date Type Department Care Team (Late st Contact Info) Description 07/20/2023 10:11 AM CDT - 07/20/2023 11:04 AM CDT Emergency [place] [facility] [place] [address] Sanchez Lara MD [address] [place] [address] [phone] Headache (Flu like symptoms, ) Discharge Disposition: Home or Self Care (Routine [...] Sign Reading Time Taken Comments Blood Pressure 145/78 07/20/2023 10:32 AM CDT Pulse 91 07/20/2023 10:32 AM CDT Temperature 36.2 ??C (97.2 ??F) 07/20/2023 10:32 AM C DT Respiratory Rate 16 07/20/2023 10:32 AM CDT Oxygen Saturation 98% 07/20/2023 10:32 AM CDT Inhaled Oxygen Concentration - - Weight 80 kg (176 lb 6.4 oz) 07/20/2023 10:22 AM CDT Height 188 cm (6' 2 ) 07/20/2023 10:22 AM CDT Body Mass Index 22.65 07/20/2023 10:22 AM CDT documented in this encounter Discharge Instructions * Attachments The following attachments cannot be sent through Care Everywhere. * Viral Syndrome Discharge Instructions (Sierra Leonean) documented in this encounter Medications at Time of Discharge ibuprofen (MOTRIN) 600 MG tablet Take 1 tablet (600 mg total) by mouth 3 (three) times daily as needed for Pain. 15 tablet 07/20/2023 07/30/2023 QUEtiapine 25 MG tablet 2 (two) times daily. 08/21/2021 01/23/2024 documented as of this encounter ED Notes * Frankie Rowe RN - 07/20/2023 10:12 AM CDT Pt presents To the ER with Flu like symptoms starting last night approx 2300, c/o of a headache rating 8/10. Pt afebrile in triage. No medications taken prior to arrival. * Sanchez Lara MD - 07/20/2023 10:10 AM CDT eMERGENCY dEPARTMENT eNCOUnter CHIEF COMPLAINT Chief Complaint Patient presents with Headache Flu like symptoms, HPI HPI Jason London is a 33-year-old male who presents to the ER with a complaint of headache muscle aches body aches sore throat. Patient states symptoms started around 11 PM last night. He is not currently very this been sick. No fevers chills vomiting or other complaints. ALLERGIES Review of patient's allergies indicates: No Known Allergies CURRENT MEDICATIONS Current Outpatient Medications Medication Sig ibuprofen (MOTRIN) 600 MG tablet Take 1 tablet (600 mg total) by mouth 3 (three) times daily as needed for Pain. QUEtiapine 25 MG tablet 2 (two) times daily. PAST MEDICAL HISTORY Past Medical History: Diagnosis Date Anxiety Depression Pancreatitis (HHS/HCC) SURGICAL HISTORY History reviewed. No pertinent surgical history. SOCIAL HISTORY Social History Socioeconomic History Marital status: Tobacco Use Smoking status: Every Day Packs/day: 0.50 Types: Cigarettes Smokeless tobacco: Never Vaping Use Vaping Use: Never used Substance and Sexual Activity Alcohol use: Not Currently Comment: Gallon a day Drug use: Yes Types: Marijuana, Methamphetamines Comment: denies Sexual activity: Not Currently FAMILY HISTORY Family History Problem Relation Name Age of Onset No Known Problems Mother No Known Problems Father REVIEW OF SYSTEMS Review of Systems All other ROS negative unless noted above in HPI. PHYSICAL EXAM Physical Exam Filed Vitals: 07/20/23 1018 07/20/23 1022 07/20/23 1032 BP: (!) 145/78 (!) 145/78 Pulse: 91 91 Resp: 18 16 Temp: 97.2 ??F (36.2 ??C) 97.2 ??F (36.2 ??C) 97.2 ??F (36.2 ??C) TempSrc: Skin Skin SpO2: 98% Weight: 80 kg (176 lb 6.4 oz) Height: 1.88 m (6' 2 ) The patient is a well developed and well nourished adult male in mild distress, alert and oriented. HEENT: PERRL, EOMI, no photophobia Nose without drainage Throat without lesions although mucous membranes are somewhat injected, mucous membranes moist NECK: Supple without adenopathy or rigidity CHEST: Lungs clear and equal to auscultation Heart regular rate and rhythm without murmur ABD: Soft, NABS, non tender NEURO: CN II-XII intact, no focal weakness SKIN: No rash or significant lesions EKG RADIOLOGY No orders to display LABS Results for orders placed or performed during the hospital encounter of 07/20/23 RAPID STREP A Specimen: THROAT Result Value Ref Range SPECIMEN SOURCE THROAT RAPID STREP TEST NEGATIVE NEGATIVE INFLUENZA A & B Specimen: NASOPHARYNGEAL SWAB Result Value Ref Range SPECIMEN TYPE (INFLUENZA) NASOPHARYNGEAL SWAB INFLUENZA A NEGATIVE NEGATIVE INFLUENZA B NEGATIVE NEGATIVE CORONAVIRUS (COVID-19) ANTIGEN DIRECT OPTICAL Specimen: NASAL Result Value Ref Range CORONAVIRUS ANTIGEN IA NEGATIVE NEGATIVE Specimen Type NASAL ED MEDICATIONS Medications ketorolac (TORADOL) injection 60 mg (60 mg Intramuscular Given 07/20/23 1029) PROCEDURES Procedures CONSULTS: ED COURSE & MEDICAL DECISION MAKING MDM Amount and/or Complexity of Data Reviewed Clinical lab tests: reviewed ED Course as of 07/20/23 1100 Sat Jul 20, 2023 1057 INFLUENZA A & B [WM] 1057 CORONAVIRUS (COVID-19) ANTIGEN DIRECT OPTICAL [WM] 1057 RAPID STREP A Rapid swabs are all negative. [WM] ED Course User Index [WM] Sanchez Lara MD Patient presents with a variety of symptoms which appear consistent with a viral syndrome. We will medicate him with some Toradol and check rapid swabs. Patient has had some improvement after Toradol. Rapid swabs are negative this is likely some other type of viral illness. We will place him on prescription strength ibuprofen over the weekend he willfollow-up with his primary care physician if not improving neck several days for what appears to beviral syndrome. FINAL IMPRESSION SNOMED CT(R) 1. Viral syndrome VIRAL DISEASE 2. Generalized body aches GENERALIZED ACHES AND PAINS Aldo Montenegro MD [address] [facility] [address] In 2 days If symptoms worsen New Prescriptions IBUPROFEN (MOTRIN) 600 MG TABLET Take 1 tablet (600 mg total) by mouth 3 (three) times daily as needed for Pain. Sanchez Lara MD 07/20/23 1100 documented in this encounter Plan of Treatment Not on file documented as of this encounter Procedures Procedure Name Priority Date/Time Associated Diagnosis Comments CORONAVIRUS (COVID-19) ANTIGEN DIRECT OPTICAL STAT 07/20/2023 10:25 AM CDT RAPID STREP A STAT 07/20/2023 10:25 AM CDT INFLUENZA A & B STAT 07/20/2023 10:25 AM CDT documented in this encounter Results * CORONAVIRUS (COVID-19) ANTIGEN DIRECT OPTICAL (07/20/2023 10:25 AM CDT) CORONAVIRUS ANTIGEN IA NEGATIVE NEGATIVE 07/20/2023 10:56 AM CDT [facility] Comment: NEGATIVE RESULTS DO NOT RULE OUT SARS-COV-2 INFECTION AND SHOULD NOT BE USED THE SOLE BASIS FOR TREATMENT OR PATIENT MANAGEMENT DECISIONS, INCLUDING INFECTION CONTROL DECISIONS. NEGATIVE RESULTS SHOULD BE CONSIDERED IN THE CONTEXT OF A PATIENT'S RECENT EXPOSURES, HISTORY AND THE PRESENCE OF CLINICAL SIGNS AND SYMPTOMS CONSISTENT WITH COVID 19. THIS TEST HAS BEEN AUTHORIZED BY THE FDA UNDER AN EMERGENCY USE AUTHORIZATION (EUA) FOR USE BY AUTHORIZED LABORATORIES. SPECIMEN TYPE NASAL 07/20/2023 10:32 AM CDT [facility] NASAL NASAL STRUCTURE / Unknown 07/20/2023 10:25 AM CDT us Sanchez Lara MD MICROBIOLOGY GENERAL ORDERA BLES Final Result Performing Organization Address [facility]/ZIP Co de Phone Number [facility] [address] [place] [address], * INFLUENZA A & B (07/20/2023 10:25 AM CDT) SPECIMEN TYPE (INFLUENZA) NASOPHARYNGEAL SWAB 07/20/2023 10:32 AM CDT [facility] INFLUENZA A NEGATIVE NEGATIVE 07/20/2023 10:57 AM CDT [facility] INFLUENZA B NEGATIVE NEGATIVE 07/20/2023 10:57 AM CDT [facility] Comment: A NEGATIVE RESULT DOES NOT EXCLUDE INFLUENZA VIRUS INFECTION. ??IF INFLUENZA IS CIRCULATING IN YOUR COMMUNITY, A DIAGNOSIS OF INFLUENZA SHOULD BE CONSIDERED BASED ON A PATIENT'S CLINICAL PRESENTATION AND EMPIRIC ANTIVIRAL TREATMENT SHOULD BE CONSIDERED IF INDICATED. NASOPHARYNGEAL SWAB / Unknown 07/20/2023 10:25 AM CDT us Sanchez Lara MD MICROBIOLOGY GENERAL ORDERA BLES Final Result [facility] [address] [place] [address], * RAPID STREP A (07/20/2023 10:25 AM CDT) SPECIMEN SOURCE THROAT 07/20/2023 10:32 AM CDT [facility] RAPID STREP TEST NEGATIVE NEGATIVE 07/20/2023 10:48 AM CDT [facility] STRUCTURE OF ANTERIOR PORTION OF NECK / Unknown 07/20/2023 10:25 AM CDT Sanchez Lara MD MICROBIOLOGY - GENERAL ORDERA JERE Final Result [facility] [address] [place] [address], documented in this encounter Visit Diagnoses Diagnosis Viral syndrome- Primary Unspecified viral infection, in conditions classified elsewhere and of unspecified site Generalized body aches documented in this encounter Administered Medications Inactive Administered Medications - up to 3 most recent administrations Medication Order MAR Action Action Date Dose Rate Site ketorolac (TORADOL) injection 60 mg 60 mg, Intramuscular, Once, 1 dose, On 07/20/23 at 1030, For IV administration, give over 15 seconds. Given 07/20/2023 10:29 AM CDT 60 mg Left Deltoid documented in this encounter Active and Recently Administered Medications Times are shown in CDT. Scheduled Medication Order 07/18/2023 07/19/2023 07/20/2023 ketorolac (TORADOL) injection 60 mg (COMPLETED) 60 mg, Intramuscular, Once, 1 dose, On 07/20/23 at 1030, For IV administration, give over 15 seconds. 1029 (Given - Provid er: Jose Jc RN) documented in this encounter Additional Health Concerns Infection Onset Date Last Indicated Resolved Time COVID-19 Rule Out 07/20/2023 07/20/2023 07/20/2023 10:57 AM CDT documented as of this encounter Care Teams Concrete Pipe Machine Operator Relationship Specialty Start Date End Date Aldo Montenegro MD [address] [place] [phone] PCP - General INTERNAL MEDICINE 10/21/21 documented as of this encounter
--- OUTSIDE RECORDS SUMMARY | 2024-10-14 00:43 | XMS_ITS | Encounter Summary ---
Author Organization [facility] Address [address] [place] [address]. [address] [address] Care Team Providers Care Supervisor Shed Workers Name Role Phone Aldo Montenegro MD Primary Care Provider [phone] Encounter Details Date Type Department Care Team (Latest Contact Info) Description 07/13/2023 Travel Social History Tobacco Use Types Packs/Day [...] on filedocumented in this encounter Care Teams Supervisor Shed Workers Relationship Specialty Start Date End Date Aldo Montenegro MD [address] [place] [address] PCP - General INTERNAL MEDICINE 10/21/21 documented as of this encounter
--- OUTSIDE RECORDS SUMMARY | 2024-10-14 00:43 | XMS_ITS | Encounter Summary ---
Author Organization [facility] Address [address] [place] [address]. [place], [place] [address] [place] [address] Care Team Providers Care Leak Patcher Name Role Phone Aldo Montenegro MD Primary Care Provider [phone] Reason for Referral * (Routine) - Closed Specialty Diagnoses / Procedures Referred By Contpratik ross Referred To Contact Procedures LACERATION REPAIR Sandy Ryder DO Phone: tel: fax: Referral ID Status Reason Start Date Expiration Date Visits Re quested Visits Authorized [id number] Closed 07/13/2023 07/13/2024 1 1 Reason for Visit * Reason Comments Laceration Encounter Details Date Type Department Care Team (Late st Contact Info) Description 07/13/2023 5:45 PM CDT - 07/13/2023 6:50 PM CDT Emergency [place] [facility] [address] [place] [address] Sandy Ryder DO [address] [place] [address] Laceration Discharge Disposition: Home or Self Care [...] Sign Reading Time Taken Comments Blood Pressure 121/74 07/13/2023 6:50 PM CDT Pulse 79 07/13/2023 6:50 PM CDT Temperature 36.2 ??C (97.2 ??F) 07/13/2023 5:45 PM CD T Respiratory Rate 16 07/13/2023 6:50 PM CDT Oxygen Saturation 99% 07/13/2023 6:50 PM CDT Inhaled Oxygen Concentration - - Weight 81.6 kg (180 lb) 07/13/2023 5:45 PM CDT Height 188 cm (6' 2 ) 07/13/2023 5:45 PM CDT Body Mass Index 23.11 07/13/2023 5:45 PM CDT documented in this encounter Discharge Instructions * Discharge Instructions* Sandy Ryder DO - 07/13/2023 6:47 PM CDT Please refer to the attached discharge instructions regarding your diagnosis and treatment recommendations. Take alternating Tylenol and ibuprofen as needed for pain Please take all your home medications as directed. Please follow up with your primary doctor as needed Please return to the emergency department if: Increased redness spreading down your finger or hand Foul-smelling or puslike drainage Fevers (greater than 100.4 F) that are not controlled with over the counter fever medications You know yourself better than anyone. If you become concerned about your progress or believe your condition is worsening please return to the emergency department or call the nurses hotline at for further recommendations. * Attachments The following attachments cannot be sent through Care Everywhere. * Laceration Repair With Glue Discharge Instructions (Arabic) documented in this encounter Medications at Time of Discharge QUEtiapine 25 MG tablet 2 (two) times daily. 08/21/2021 01/23/2024 documented as of this encounter ED Notes * Paty Kern RN - 07/13/2023 5:40 PM CDT Pt cut left posterior index finger while using a knife prior to arrival. 1 cm x 1cm v shaped. Pt is UTD with tetanus * Sandy Ryder, DO - 07/13/2023 5:40 PM CDTAssociated Order(s): Lac Repair Chief Complaint Chief Complaint Patient presents with Laceration History of Present Illness 33 YOM with a history of anxiety and depression presenting after a laceration to his left index finger. Was using a knife to slice open a bag and caught the pad of his left index finger. This occurred about 15min prior to arrival. Bleeding controlled with direct pressure. No other injuries. Denies any numbness or tingling. Last tetanus was within the last 6 months. No pain meds prior to arrival. Has not washed it out at all yet. Medical History ALLERGIES: Review of patient's allergies indicates: No Known Allergies MEDICATIONS: Prior to Admission medications Medication Sig Start Date End Date Taking? Authorizing Provider QUEtiapine 25 MG tablet 2 (two) times daily. 08/21/21 Doc [facility] PAST MEDICAL HISTORY: Past Medical History: Diagnosis Date Anxiety Depression Pancreatitis (HHS/HCC) PAST SURGICAL HISTORY: History reviewed. No pertinent surgical history. FAMILY HISTORY: Family History Problem Relation Name Age of Onset No Known Problems Mother No Known Problems Father SOCIAL HISTORY: Social History Tobacco Use Smoking status: Every Day Packs/day: 0.50 Types: Cigarettes Smokeless tobacco: Never Vaping Use Vaping Use: Never used Substance Use Topics Alcohol use: Not Currently Comment: Gallon a day Drug use: Yes Types: Marijuana, Methamphetamines Comment: denies Review of Systems Review of Systems Constitutional: Negative for chills and fever. Respiratory: Negative for shortness of breath. Cardiovascular: Negative for chest pain. Gastrointestinal: Negative for nausea and vomiting. Skin: Positive for wound. Physical Exam Filed Vitals: 07/13/23 1745 07/13/23 1850 BP: 134/76 121/74 Pulse: 80 79 Resp: 16 16 Temp: 97.2 ??F (36.2 ??C) TempSrc: Temporal SpO2: 97% 99% Weight: 81.6 kg (180 lb) Height: 6' 2 (1.88 m) Physical Exam Constitutional: General: He is not in acute distress. Appearance: He is normal weight. He is not toxic-appearing. Eyes: Pupils: Pupils are equal, round, and reactive to light. Cardiovascular: Rate and Rhythm: Normal rate. Pulses: Normal pulses. Pulmonary: Effort: Pulmonary effort is normal. Breath sounds: Normal breath sounds. Skin: General: Skin is warm and dry. Comments: Flap like V shaped laceration on pad of left index finger. No active bleeding. NV in tactin distal fingertip with grossly normal sensation and <2sec cap refill. Neurological: Mental Status: He is alert and oriented to person, place, and time. Psychiatric: Mood and Affect: Mood normal. Diagnostic Studies / Procedures ELECTROCARDIOGRAMS: No results found for this visit on 07/13/23. LABORATORY STUDIES: No results found for this visit on 07/13/23. IMAGING STUDIES No orders to display Lac Repair Date/Time: 07/13/2023 6:46 PM Performed by: Sandy Ryder DO Authorized by: Sandy Ryder DO Consent: Consent obtained: Verbal Consent given by: Patient Risks, benefits, and alternatives were discussed: yes Risks discussed: Infection, pain, poor cosmetic result, poor wound healing and need for additional repair Alternatives discussed: No treatment and delayed treatment [place] protocol: Patient identity confirmed: Verbally with patient Anesthesia: Anesthesia method: None Laceration details: Location: Finger Finger location: L index finger Length (cm): 1.5 Depth (mm): 2 Exploration: Limited defect created (wound extended): no Hemostasis achieved with: Direct pressure Wound exploration: wound explored through full range of motion and entire depth of wound visualized Wound extent: no areolar tissue violation noted, no fascia violation noted and no muscle damage noted Treatment: Area cleansed with: Soap and water Amount of cleaning: Standard Visualized foreign bodies/material removed: no Debridement: None Undermining: None Skin repair: Repair method: Tissue adhesive and Steri-Strips Number of Steri-Strips: 2 Approximation: Approximation: Close Repair type: Repair type: Simple Post-procedure details: Dressing: Non-adherent dressing and splint for protection Procedure completion: Tolerated ED Course / Medical Decision Making Medical Decision Making 33-year-old male presenting with superficial left index finger laceration unremarkable vitals. V shaped superficial flap like laceration to the pad of his left index finger, no acute bleeding with an otherwise unremarkable physical exam. Sensation in tact in distal digit with <2 sec cap refill. Per records review last tdap was 04/2022 Discussed sutures vs steri-strips and glue for repair of his small flap laceration. He is comfortable with plan for wash with warm soapy water followed by closure with steri-strips and glue. Clinical Impression Finger laceration (Primary) Disposition: Discharge Sandy Ryder DO 07/13/232233 documented in this encounter Plan of Treatment Not on file documented as of this encounter Procedures Procedure Name Priority Date/Time Associated Diagnosis Comments LACERATION REPAIR Routine 07/13/2023 6:4 6 PM CDT documented in this encounter Results * Lac Repair (07/13/2023 6:46 PM CDT) Sandy Olea DO - 07/13/2023 6:46 PM CDT Sandy Ryder, DO ? 07/13/2023 10:34 PM Lac Repair Date/Time: 07/13/2023 6:46 PM Performed by: Sandy Ryder DO Authorized by: Sandy Ryder DO Consent: ??Consent obtained: ??Verbal ??Consent given by: ??Patient ??Risks, benefits, and alternatives were discussed: yes ?Risks discussed: ??Infection, pain, poor cosmetic result, poor wound healing and need for additional repair ??Alternatives discussed: ??No treatment and delayed treatment [place] protocol: ??Patient identity confirmed: ??Verbally with patient Anesthesia: ??Anesthesia method: ??None Laceration details: ??Location: ??Finger ??Finger location: ??L index finger ??Length (cm): ??1.5 ??Depth (mm): ??2 Exploration: ??Limited defect created (wound extended): no ?Hemostasis achieved with: ??Direct pressure ??Wound exploration: wound explored through full range of motion and entire depth of wound visualized ?Wound extent: no areolar tissue violation noted, no fascia violation noted and no muscle damage noted ?? Treatment: ??Area cleansed with: ??Soap and water ??Amount of cleaning: ??Standard ??Visualized foreign bodies/material removed: no ?Debridement: ??None ??Undermining: ??None Skin repair: ??Repair method: ??Tissue adhesive and Steri-Strips ??Number of Steri-Strips: ??2 Approximation: ??Approximation: ??Close Repair type: ??Repair type: ??Simple Post-procedure details: ??Dressing: ??Non-adherent dressing and splint for protection ??Procedure completion: ??Tolerated us Sandy Ryder DO PROCEDURE/MINOR SURGICAL ORDERABLES Final Result documented in this encounter Visit Diagnoses Diagnosis Finger laceration- Primary Open wound of finger(s) , without mention of complication documented in this encounter Care Teams Leak Patcher Relationship Specialty Start Date End Date Aldo Montenegro MD [address] [place] [address] PCP - General INTERNAL MEDICINE 10/21/21 documented as of this encounter
--- OUTSIDE RECORDS SUMMARY | 2024-10-14 00:43 | XMS_ITS | Encounter Summary ---
Author Organization [facility] Address [address] [place] [address]. [place], [place] [address] [place] [address] Care Team Providers Care Noise Tester Name Role Phone Aldo Montenegro MD Primary Care Provider Encounter Details Date Type Department Care Team (Latest Contact Info) Description 07/20/2023 Travel Social History Tobacco Use Types Packs/Day [...] Diagnoses Not on filedocumented in this encounter Additional Health Concerns Infection Onset Date Last Indicated Resolved Time COVID-19 Rule Out 07/20/2023 07/20/2023 07/20/2023 10:57 AM CDT documented as of this encounter Care Teams Noise Tester Relationship Specialty Start Date End Date Aldo Montenegro MD [address] [place] [address] PCP - General INTERNAL MEDICINE 10/21/21 documented as of this encounter
--- OUTSIDE RECORDS SUMMARY | 2024-10-14 00:43 | XMS_ITS | Encounter Summary ---
Author Organization [facility] Address [address] [place] [address]. [place], [place] [address] [place] [address] Care Team Providers Care Metal Fitters And Machinists Name Role Phone Aldo Montenegro MD Primary Care Provider [phone] Encounter Details Date Type Department Care Team (Latest Contact Info) Description 09/12/2022 Travel Social History Tobacco Use Types Packs/Day [...] Coronavirus/COVID-19? 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
--- OUTSIDE RECORDS SUMMARY | 2024-10-14 00:43 | XMS_ITS | Encounter Summary ---
Author Organization [facility] Address [address] [place] [address]. [place], [place] [address] [place] [address] Care Team Providers Care Livestock Slaughterer Name Role Phone Aldo Montenegro MD Primary Care Provider [phone] Encounter Details Date Type Department Care Team (Latest Contact Info) Description 02/01/2023 Travel Social History Tobacco Use Types Packs/Day [...] on filedocumented in this encounter Care Teams Livestock Slaughterer Relationship Specialty Start Date End Date Aldo Montenegro MD [address] [place] [address] PCP - General INTERNAL MEDICINE 10/21/21 documented as of this encounter
--- OUTSIDE RECORDS SUMMARY | 2024-10-14 00:43 | XMS_ITS | Encounter Summary ---
Author Organization [facility] Address [address] [place] [address]. [place], [place] [id number] [place] [address] Care Team Providers Care Client Support Administrator Name Role Phone Aldo Montenegro MD Primary Care Provider [phone] Reason for Visit * Reason Comments Chest Pain Encounter Details Date Type Department Care Team (Late st Contact Info) Description 01/23/2024 3:31 AM CDT - 01/23/2024 4:29 AM CDT Emergency [facility] [address] [place] [address] [place] [address] Festus Mckeon MD [address] [place] [address] [id number] Chest Pain Discharge Disposition: Correctional Facility or Police Custody Social History Tobacco Use Types Packs/Day Years [...] Mass Index 25.77 01/23/2024 3:36 AM CDT documented in this encounter Discharge Instructions * Discharge Instructions* Festus Mckeon MD - 01/23/2024 4:18 AM CDT Patient is fit for incarceration at this time. Please schedule a follow-up appointment with your primary care provider in the next 1-2 days. Please return to the ED for any new or worsening symptoms. Or for any other health-related concern. * Attachments The following attachments cannot be sent through Care Everywhere. * Electrical Shock Discharge Instructions ([place]) * Chest Pain Discharge Instructions ([place]) documented in this encounter ED Notes * Festus Mckeon MD - 01/23/2024 3:43 AM CDT Chief Complaint Chief Complaint Patient presents with Chest Pain History of Present Illness Pt presents in police custody with chest pain. Was reported to be tazed 3 times this evening while running from police. Hit in the left side chest wall with tazer barbs. These were removed prior to arrival. Patient states chest pain started after this. Reports bilateral lateral chest pain. No SOB. Denies htiting head. No other pain or injury. Medical History ALLERGIES: Review of patient's allergies indicates: No Known Allergies MEDICATIONS: Prior to Admission medications Not on File PAST MEDICAL HISTORY: Past Medical History: Diagnosis Date Anxiety Depression Pancreatitis (HHS/HCC) PAST SURGICAL HISTORY: History reviewed. No pertinent surgical history. FAMILY HISTORY: Family History Problem Relation Name Age of Onset No Known Problems Mother No Known Problems Father SOCIAL HISTORY: Social History Tobacco Use Smoking status: Every Day Current packs/day: 1.00 Types: Cigarettes Smokeless tobacco: Never Vaping Use Vaping status: Never Used Substance Use Topics Alcohol use: Not Currently Drug use: Yes Types: Marijuana, Methamphetamines Review of Systems Review of Systems Constitutional: Negative for fever. HENT: Negative for congestion and rhinorrhea. Eyes: Negative for pain. Respiratory: Negative except as documented in HPI. Cardiovascular: Negative except as documented in HPI. Gastrointestinal: Negative for abdominal pain, diarrhea and vomiting. Genitourinary: Negative for dysuria. Musculoskeletal: Negative for joint swelling and myalgias. Skin: Positive for wound (small puncture wounds from [facility]). Negative for rash. Neurological: Negative for weakness and numbness. Psychiatric/Behavioral: Negative for agitation. Physical Exam Filed Vitals: 01/23/24 0340 01/23/24 0350 01/23/24 0400 01/23/24 0410 BP: 120/72 Pulse: Resp: Temp: TempSrc: SpO2: 96% 95% 94% 95% Weight: Height: Physical Exam Vitals and nursing note reviewed. Constitutional: General: He is not in acute distress. Appearance: He is well-developed. HENT: Head: Normocephalic and atraumatic. Right Ear: External ear normal. Left Ear: External ear normal. Nose: Nose normal. No congestion or rhinorrhea. Mouth/Throat: Mouth: Mucous membranes are moist. Eyes: Extraocular Movements: Extraocular movements intact. Conjunctiva/sclera: Conjunctivae normal. Pupils: Pupils are equal, round, and reactive to light. Neck: Vascular: No JVD. Trachea: No tracheal deviation. Cardiovascular: Rate and Rhythm: Normal rate and regular rhythm. Pulses: Normal pulses. Pulmonary: Effort: Pulmonary effort is normal. No respiratory distress. Breath sounds: Normal breath sounds. Abdominal: General: There is no distension. Palpations: Abdomen is soft. Tenderness: There is no abdominal tenderness. There is no guarding. Musculoskeletal: General: No deformity or signs of injury. Cervical back: Normal range of motion. Skin: General: Skin is warm and dry. Comments: Puncture wounds noted to the left sided chest wall from [facility] Neurological: General: No focal deficit present. Mental Status: He is alert and oriented to person, place, and time. Diagnostic Studies / Procedures ELECTROCARDIOGRAMS: Results for orders placed or performed during the hospital encounter of 01/23/24 ECG 12 lead Narrative [address] [place] [address] Test Date: 2024-01-23 Pat Name: JASON LONDON Department: 3 Room: Gender: Male Veterinary X Ray Operator: : 1990 Requested By: FESTUS MCKEON Order Number: [id number] Reading MD: Measurements Intervals [place] Rate: 84 P: 65 WI: 151 QRS: 68 QRSD: 94 T: 56 QT: 356 QTc: 423 Interpretive Statements SINUS RHYTHM LABORATORY STUDIES: Results for orders placed or performed during the hospital encounter of 01/23/24 CBC W/DIFF AUTOMATED Result Value Ref Range WBC 7.36 4.00 - 10.80 x10'3/uL RBC 4.23 (L) 4.50 - 6.10 x10'6/uL HGB 12.7 (L) 13.0 - 18.0 G/DL HCT 37.3 37.0 - 52.0 % MCV 88.2 78.0 - 100.0 FL MCH 30.0 27.0 - 31.0 PG MCHC 34.0 33.0 - 36.0 G/DL RDW 12.6 11.5 - 14.5 % PLT 249 150 - 350 x10'3/uL MPV 9.4 7.4 - 10.4 FL CBC COMMENT NORMAL REFERENCE RANGE NOT ESTABLISHED FOR THE PROPORTIONAL LEUKOCYTE DIFFERENTIAL. NEUTROPHILS 58.8 % LYMPHOCYTES 28.1 % MONOCYTES 7.5 % EOSINOPHILS 4.8 % BASOPHILS 0.4 % IMMATURE GRANS 0.4 % NRBC 0.0 % ABS. NEUTROPHILS 4.33 1.60 - 8.30 x10'3/uL ABS. LYMPHOCYTES 2.07 0.80 - 4.70 x10'3/uL ABS. MONOCYTES 0.55 0.00 - 1.50 x10'3/uL ABS. EOSINOPHILS 0.35 0.00 - 0.40 x10'3/uL ABS. BASOPHILS 0.03 0.00 - 0.20 x10'3/uL ABS. IMMATURE GRANULOCYTES 0.03 0.00 - 0.03 x10'3/uL ABS. NUCLEATED RBC'S 0.00 0.00 x10'3/uL BASIC METABOLIC PANEL Result Value Ref Range SODIUM S/P/B 142 136 - 145 MMOL/L POTASSIUM S/P/B 3.7 3.5 - 5.1 MMOL/L CHLORIDE S/P/B 106 98 - 107 MMOL/L CO2 26.3 21.0 - 32.0 MMOL/L GLUCOSE 103 (H) 70 - 99 MG/DL BUN 28 (H) 6 - 24 MG/DL CREATININE S/P/B 0.92 0.70 - 1.30 MG/DL CALCIUM S/P/B 8.5 8.4 - 10.5 MG/DL ANION GAP 9.7 5.0 - 15.0 MMOL/L OSMOLALITY (CALC) 300 MOSM/KG GFR ESTIMATE >90 >89 ML/MIN/1.73 M2 GFR NOTES GFR REFERENCES: TROPONIN, QUANT Result Value Ref Range TROPONIN I HIGH SENSITIVITY 5 0 - 76 ng/L IMAGING STUDIES XR CHEST PORTABLE Final Result by User, [id number] (01/22 403) Portable chest INDICATION: Chest pain. COMPARISON: October 21, 2021. TECHNIQUE: Single AP chest film. FINDINGS: Heart size and pulmonary vasculature are normal. The lungs are clear. No pleural fluid or pneumothorax. Bony structures are unremarkable. IMPRESSION: Normal study. Referred By: Interpreted By: Sae Fish MD, 01/23/2024 4:01 AM ED Course / Medical Decision Making Medical Decision Making ED Course as of 01/23/24 0423 [facility] Jan 23, 2024 0343 ECG independently reviewed and interpreted by me. ECG by my interpretation is NSR Rate 84 Normal intervals. No acute st t wave abnormalities to indicate ischemic process. [DP] 0418 XR CHEST PORTABLE Reviewed and negative. [DP] 0420 Laboratory work-up significant for mild anemia. Otherwise no acute laboratory abnormalities. Patient in no acute distress. Vitals wnl. Chest pain free. Plan for d/c to police custody. Discussed results with Patient. Discussed return precautions and follow up instructions. They verbalized understanding and agreed to plan for discharge home. [DP] ED Course User Index [DP] Festus Mckeon MD Clinical Impression Taser injury (Primary) Chest pain Disposition: Discharge Festus Mckeon MD 01/23/24420 Festus Mckeon MD 01/23/24422 * Camilla Guardado RN - 01/23/2024 3:35 AM CDT Pt presents to ER via EMS escorted by Darcy YOUNG. Pt was being chased on foot by police when they ultimately had to tase him 3x before he stopped running. He was tased in his left breast, left middle abdomen and right lower abdomen. Pt states he did methamphetamines and smoked marijuana tonight,pt denies any alcohol usage. Pt states he is now having intermittent sharp, non radiating chest pain 04/15. Pt has hx pancreatitis and depression, currently takes no daily medications. documented in this encounter Plan of Treatment Not on file documented as of this encounter Procedures Procedure Name Priority Date/Time Associated Diagnosis Comments XR CHEST PORTABLE STAT 01/23/2024 3:5 5 AM CDT BASIC METABOLIC PANEL STAT 01/23/2024 3:51 AM CDT CBC W/DIFF AUTOMATED STAT 01/23/2024 3:51 AM CDT TROPONIN, QUANT STAT 01/23/2024 3:51 AM CDT ECG 12-LEAD Routine 01/23/2024 3:32 AM CDT documented in this encounter Results * XR CHEST PORTABLE (01/23/2024 3:55 AM CDT) Anatomical Region Laterality Modality Chest Radiographic Britney ging 01/23/2024 4:01 AM CDT Impressions 01/23/2024 4:02 AM CDT IMPRESSION: Normal study. Referred By: ?? Interpreted By: Sae Fish MD, 01/23/2024 4:01 AM Narrative 01/23/2024 4:02 AM CDT Portable chest INDICATION: Chest pain. COMPARISON: October 21, 2021. TECHNIQUE: Single AP chest film. FINDINGS: Heart size and pulmonary vasculature are normal. ??The lungs are clear. ??No pleural fluid or pneumothorax. ??Bony structures are unremarkable. Procedure Note Sae Fish MD - 01/23/2024 Portable chest INDICATION: Chest pain. COMPARISON: October 21, 2021. TECHNIQUE: Single AP chest film. FINDINGS: Heart size and pulmonary vasculature are normal. The lungs areclear. No pleural fluid or pneumothorax. Bony structures areunremarkable. IMPRESSION: Normal study. Referred By: Interpreted By: Sae Fish MD, 01/23/2024 4:01 AM us Festus Mckeon MD GENERAL IMAGING Final Res ult * TROPONIN, QUANT (01/23/2024 3:51 AM CDT) Pathologist [facility] TROPONIN I HIGH SENSITIVITY 5 0 - 76 ng/L 01/23/2024 4:19 AM CDT [facility] 01/23/2024 3:51 AM CDT us Festus Mckeon MD LABORATORY Final Res ult [facility] [address] [place] [address], * (ABNORMAL) BASIC METABOLIC PANEL (01/23/2024 3:51 AM CDT) SODIUM S/P/B 142 136 - 145 MMOL/L 01/23/2024 4:19 AM CDT [facility] POTASSIUM S/P/B 3.7 3.5 - 5.1 MMOL/L 01/23/2024 4:19 AM CDT [facility] CHLORIDE S/P/B 106 98 - 107 MMOL/L 01/23/2024 4:19 AM CDT [facility] CO2 26.3 21.0 - 32.0 MMOL/L 01/23/2024 4:19 AM CDT [facility] GLUCOSE 103(H) 70 - 99 MG/DL 01/23/2024 4:19 AM T [facility] Comment: FASTING GLUCOSE 100 TO 125 MG/DL IS CONSISTENT WITH IMPAIRED FASTING GLUCOSE. FASTING GLUCOSE >125 MG/DL IS CONSISTENT WITH DIABETES. RANDOM GLUCOSE >200 MG/DL WITH HYPERGLYCEMIC SYMPTOMS IS CONSISTENT WITH DIABETES. PER ADA GUIDELINES BUN 28(H) 6 - 24 MG/DL 01/23/2024 4:19 AM T [facility] CREATININE S/P/B 0.92 0.70 - 1.30 MG/DL 01/23/2024 4:19 AM T [facility] CALCIUM S/P/B 8.5 8.4 - 10.5 MG/DL 01/23/2024 4:19 AM T [facility] ANION GAP 9.7 5.0 - 15.0 MMOL/L 01/23/2024 4:19 AM [facility] OSMOLALITY (CALC) 300 MOSM/KG 024 4:19 AM T [facility] Comment:REFERENCE RANGE NOT ESTABLISHED GFR ESTIMATE >90 >89 ML/MIN/1. 73 M2 01/23/2024 4:19 AM [facility] GFR NOTES GFR REFERENCE S: 01/23/2024 4:19 AM [facility] Comment: THE ESTIMATED GFR IS [...] ml/min/1.73 m2 G5,KIDNEY FAILURE: <15 ml/min/1.73 m2 01/23/2024 3:51 AM CDT us Festus Mckeon MD LABORATORY Final Res ult [facility] [address] [place] [address], * (ABNORMAL) CBC W/DIFF AUTOMATED (01/23/2024 3:51 AM CDT) WBC 7.36 4.00 - 10.80 x10'3/uL 01/23/2024 3:59 AM CDT [facility] RBC 4.23(L) 4.50 - 6.10 x10'6/uL 01/23/2024 3:59 AM CDT [facility] HGB 12.7(L) 13.0 - 18.0 G/DL 01/23/2024 3:59 AM CDT [facility] HCT 37.3 37.0 - 52.0 % 01/23/2024 3:59 AM CDT [facility] MCV 88.2 78.0 - 100.0 FL 01/23/2024 3:59 AM CDT [facility] MCH 30.0 27.0 - 31.0 PG 01/23/2024 3:59 AM CDT [facility] MCHC 34.0 33.0 - 36.0 G/DL 01/23/2024 3:59 AM CDT [facility] RDW 12.6 11.5 - 14.5 % 01/23/2024 3:59 AM CDT [facility] PLT 249 150 - 350 x10'3/uL 01/23/2024 3:59 AM CDT [facility] MPV 9.4 7.4 - 10.4 FL 01/23/2024 3:59 AM CDT [facility] CBC COMMENT NORMAL REFERENCE RANGE NOT ESTABLISHED FOR THE PROPORTIONAL LEUKOCYTE DIFFERENTIAL. 01/23/2024 3:59 AM CDT [facility] NEUTROPHILS % 58.8 % 01/23/2024 3:59 AM CDT [facility] LYMPHOCYTES % 28.1 % 01/23/2024 3:59 AM CDT [facility] MONOCYTES % 7.5 % 01/23/2024 3:59 AM CDT [facility] EOSINOPHILS % 4.8 % 01/23/2024 3:59 AM CDT [facility] BASOPHILS % 0.4 % 01/23/2024 3:59 AM CDT [facility] IMMATURE GRANS % 0.4 % 01/23/20 3:59 AM CDT [facility] NRBC 0.0 % 01/23/2024 3:59 AM CDT [facility] ABS. NEUTROPHILS 4.33 1.60 - 8.30 x10'3/uL 01/23/2024 3:59 AM CDT [facility] ABS. LYMPHOCYTES 2.07 0.80 - 4.70 x10'3/uL 01/23/2024 3:59 AM CDT [facility] ABS. MONOCYTES 0.55 0.00 - 1.50 x10'3/uL 01/23/2024 3:59 AM CDT [facility] ABS. EOSINOPHILS 0.35 0.00 - 0.40 x10'3/uL 01/23/2024 3:59 AM CDT [facility] ABS. BASOPHILS 0.03 0.00 - 0.20 x10'3/uL 01/23/2024 3:59 AM CDT [facility] ABS. IMMATURE GRANULOCYTES 0.03 0.00 - 0.03 x10'3/uL 01/23/2024 3:59 AM CDT [facility] ABS. NUCLEATED RBC'S 0.00 0.00 x10'3/uL 01/23/2024 3:59 AM CDT [facility] 01/23/2024 3:51 AM CDT us Festus Mckeon MD LABORATORY Final Res ult [facility] [address] [place] [address], * ECG 12 lead (01/23/2024 3:32 AM CDT) 01/23/2024 3:32 AM CDT Narrative [facility] - 01/23/2024 8:20 AM CDT ? [facility] ?[address] [place], [place] ??[address] ? Test Date: ?2024-01-23 Pat Name: ? JASON LONDON ?Department: ?? 3 ? Room: ? Gender: ? Male ? Veterinary X Ray Operator: ?? : ?1990 ? Requested By: FESTUS MCKEON Order Number: [id number] ? Reading MD: ?? [facility] ? Measurements Intervals ?[place] ? Rate: ? 84 ? P: ?65 WI: ? 151 ?QRS: ?68 QRSD: ? 94 ? T: ?56 QT: ? 356 ? QTc: ?423 ? Interpretive Statements SINUS RHYTHM Procedure Note Trino Alston MD - 01/23/[address] [place] [address] Test Date: 2024-01-23 Pat Name: JASON LONDON Department: 3 Room: Gender: Male Veterinary X Ray Operator: : 1990 Requested By: FESTUS MCKEON Order Number: [id number] Reading MD: Trino Alston Measurements Intervals [place] Rate: 84 P: 65 WI: 151 QRS: 68 QRSD: 94 T: 56 QT: 356 QTc: 423 Interpretive Statements SINUS RHYTHM us Festus Mckeon MD ECG ORDERABLES Final Res ult [facility] documented in this encounter Visit Diagnoses Diagnosis Taser injury- Primary Chest pain Chest pain, unspecified documented in this encounter Administered Medications Inactive Administered Medications - up to 3 most recent administrations Medication Order MAR Action Action Date Dose Rate Site acetaminophen (TYLENOL) tablet 1,000 mg 1,000 mg, Oral, Once, 1 dose, On Natalie 01/23/24 at 0430, Maximum dose of acetaminophen is 4000 mg from all sources in 24 hours. Given 01/23/2024 4:24 AM CDT 1,000 mg documented in this encounter Active and Recently Administered Medications Times are shown in CDT. Scheduled Medication Order 01/21/2024 01/22/2024 01/23/2024 acetaminophen (TYLENOL) tablet 1,000 mg (COMPLETED) 1,000 mg, Oral, Once, 1 dose, On Natalie 01/23/24 at 0430, Maximum dose of acetaminophen is 4000 mg from all sources in 24 hours. 0424 (Given - Provid er: Camilla Guardado RN) documented in this encounter Care Teams Client Support Administrator Relationship Specialty Start Date End Date Aldo Montenegro MD [address] [place] [address] PCP - General INTERNAL MEDICINE 10/21/21 documented as of this encounter
--- OUTSIDE RECORDS SUMMARY | 2024-10-14 00:43 | XMS_ITS ---
Author Organization [facility] Address [address] [place] [address] Care Team Providers Care Professor Of Anthropology Name Role Phone Jennifer Contreras Primary Care Provider REASON FOR VISIT Lab results Social History Sex Assigned At : Social History Observation Description Sex Assigned At Male Encounters Encounter Location Date Provider Diagnosis [address] [place] [address] 10/05/2024 Jennifer Contreras Plan Of Treatment No Information Progress Notes * SURYAJasonDOB:1990 (34 yo M)Acc No.[id number]:10/05/2024 Patient:?Jason LONDON :1990???Age:34 Y???Sex:Male Address:[address] [place], [address] * true * Date:? 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
--- OUTSIDE RECORDS SUMMARY | 2024-10-14 00:44 | XMS_ITS | Encounter Summary ---
Author Organization [facility] Address [address] [place] [address]. [place], [place] [address] [place] [address] Care Team Providers Care Professional Programmer Analyst Name Role Phone Hector Wall MD Primary Care Provider Unavailable Hector Wall MD Primary Care Provider Unavailable Encounter Details Date Type Department Care Team (Late st Contact Info) Description 04/27/2012 Abstract [facility] [place] [address] Hector Wall MD Social History Tobacco Use Types Packs/Day Years Used Date Smoking Tobacco: Never Assessed Sex and Gender Information Value Date Recorded Sex Assigned at Not on file Legal Sex Male 4:44 PM CDT Gender Identity Not on file Sexual Orientation Not on file documented as of this encounter Plan of Treatment Not on file documented as of this encounter Visit Diagnoses Diagnosis Major depressive disorder, single episode Major depressive disorder, single episode, unspecified documented in this encounter Care Teams Professional Programmer Analyst Relationship Specialty Start Date End Date Hector Wall MD PCP - General 03/30/15 Hector Wall MD PCP - General 04/27/12 documented as of this encounter
--- OUTSIDE RECORDS SUMMARY | 2024-10-14 00:44 | XMS_ITS | Encounter Summary ---
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 T1 vertebral body. No definite acute fractures identified in the cervical spine. Multilevel degenerative changes seen in the cervical spine with disc degeneration, endplate/uncovertebral osteophytes, and mild facet hypertrophy noted. Imaged portions of the soft tissues reveal symmetric prominence of the palatine tonsils with some narrowing of the oropharyngeal airway. Mildly prominent bilateral upper jugular chain lymph nodes, possibly reactive. Procedure Note Keshav Thomas MD - 10/21/2021 DATE: 10/21/2021 9:35 AM EXAMINATION: CT Cervical Spine without contrast CLINICAL HISTORY: Trauma. Altercation. COMPARISON: None TECHNIQUE: CT examination of the cervical spine was performed withoutcontrast. Axial and multiplanar reformatted images were obtained. A dose lowering technique was used for this procedure, which may include,but is not limited to, dose reduction technique, automated exposurecontrol, the use of iterative reconstruction, and ALARA (As Low AsReasonably Achievable) / Image Gently techniques. FINDINGS: Straightening of the cervical lordosis. Leftward rotation of C1 relativeto C2. Otherwise the cervical vertebral alignment, vertebral body heights,and facet alignment are maintained. C1-C2 lateral mass andatlantooccipital articulations otherwise preserved. Odontoid processintact. Chronic and/or developmental anterior wedging deformity [id number] body. No definite acute fractures identified in the cervicalspine. Multilevel degenerative changes seen in the cervical spine withdisc degeneration, endplate/uncovertebral osteophytes, and mild facethypertrophy noted. Imaged portions of the soft tissues reveal symmetricprominence of the palatine tonsils with some narrowing of theoropharyngeal airway. Mildly prominent bilateral upper jugular chain lymphnodes, possibly reactive. IMPRESSION: 1. No definite acute fractures identified in the cervical spine. Ordered By: RORY PAN Interpreted By: Keshav Thomas MD, 10/21/2021 9:43 AM us Rory Pan MD CT Final Result * CT FACIAL BONES WO CON (10/21/2021 9:35 AM PEDIATRIC DERMATOLOGIST) Anatomical Region Laterality Modality Facial Computed Tomogra phy 10/21/2021 9:45 AM PEDIATRIC DERMATOLOGIST Impressions 10/21/2021 9:48 AM PEDIATRIC DERMATOLOGIST IMPRESSION: 1. Right facial soft tissue edema in keeping with clinical history. No definite acute maxillofacial fractures identified. Ordered By: RORY PAN Interpreted By: Keshav Thomas MD, 10/21/2021 9:45 AM Narrative 10/21/2021 9:48 AM PEDIATRIC DERMATOLOGIST DATE: 10/21/2021 9:35 AM EXAMINATION: CT facial bones without contrast CLINICAL HISTORY: Trauma. Facial injuries. COMPARISON: None TECHNIQUE: Unenhanced maxillofacial CT examination was performed with axial and multiplanar images obtained. CT dose reduction techniques were utilized. FINDINGS: Right facial soft tissue edema, in keeping with clinical history. Nasal bones, orbital funk, paranasal sinuses, zygomatic arches, pterygoid plates, and mandible are intact and without evidence of acute fracture. Anterior cranial fossa floor and cribriform plate intact. No intraorbital hematoma or extraocular muscle entrapment. Trace mucosal thickening in the paranasal sinuses. Edie bullosa of the middle turbinates. Paradoxical bowing of the right middle turbinate. Imaged portions of the soft tissues reveal symmetric prominence of the palatine tonsils with some narrowing of the oropharyngeal airway. Mildly prominent bilateral upper jugular chain lymph nodes, possibly reactive, but nonspecific. Procedure Note Keshav Thomas MD - 10/21/2021 DATE: 10/21/2021 9:35 AM EXAMINATION: CT facial bones without contrast CLINICAL HISTORY: Trauma. Facial injuries. COMPARISON: None TECHNIQUE: Unenhanced maxillofacial CT examination was performed withaxial and multiplanar images obtained. CT dose reduction techniques wereutilized. FINDINGS: Right facial soft tissue edema, in keeping with clinical history. Nasalbones, orbital funk, paranasal sinuses, zygomatic arches, pterygoidplates, and mandible are intact and without evidence of acute fracture.Anterior cranial fossa floor and cribriform plate intact. No intraorbitalhematoma or extraocular muscle entrapment. Trace mucosal thickening in theparanasal sinuses. Edie bullosa of the middle turbinates. Paradoxicalbowing of the right middle turbinate. Imaged portions of the soft tissuesreveal symmetric prominence of the palatine tonsils with some narrowing ofthe oropharyngeal airway. Mildly prominent bilateral upper jugular chainlymph nodes, possibly reactive, but nonspecific. IMPRESSION: 1. Right facial soft tissue edema in keeping with clinical history. Nodefinite acute maxillofacial fractures identified. Ordered By: RORY PAN Interpreted By: Keshav Thomas MD, 10/21/2021 9:45 AM us Rory Pan MD CT Final Result * CT HEAD WO CON (10/21/2021 9:35 AM PEDIATRIC DERMATOLOGIST) Anatomical Region Laterality Modality Head Computed Tomogra phy 10/21/2021 9:41 AM PEDIATRIC DERMATOLOGIST Impressions 10/21/2021 9:43 AM PEDIATRIC DERMATOLOGIST IMPRESSION: 1. No definite CT evidence of acute intracranial abnormality. Ordered By: RORY PAN Interpreted By: Keshav Thomas MD, 10/21/2021 9:41 AM Narrative 10/21/2021 9:43 AM PEDIATRIC DERMATOLOGIST DATE: 10/21/2021 9:35 AM EXAMINATION: CT of the head CLINICAL HISTORY: Trauma. Altercation. Right forehead bruising. COMPARISON: None TECHNIQUE: CT examination of the head without contrast ??was performed with axial images obtained. A dose lowering technique was used for this procedure, which may include, but is not limited to, dose reduction technique, automated exposure control, the use of iterative reconstruction, and ALARA (As Low As Reasonably Achievable) / Image Gently techniques. FINDINGS: No acute intracranial hemorrhage, extra-axial collections, intracranial mass effect, or midline shift. Lo-white matter differentiation grossly preserved. No CT evidence of acute territorial infarction. Ventricles and extra-axial/subarachnoid spaces unremarkable. No depressed calvarial fractures. Mastoid air cells clear. Paranasal sinuses clear. Visualized orbits unremarkable. Procedure Note Keshav Thomas MD - 10/21/2021 DATE: 10/21/2021 9:35 AM EXAMINATION: CT of the head CLINICAL HISTORY: Trauma. Altercation. Right forehead bruising. COMPARISON: None TECHNIQUE: CT examination of the head without contrast was performed withaxial images obtained. A dose lowering technique was used for this procedure, which may include,but is not limited to, dose reduction technique, automated exposurecontrol, the use of iterative reconstruction, and ALARA (As Low AsReasonably Achievable) / Image Gently techniques. FINDINGS: No acute intracranial hemorrhage, extra-axial collections, intracranialmass effect, or midline shift. Lo-white matter differentiation grosslypreserved. No CT evidence of acute territorial infarction. Ventricles andextra-axial/subarachnoid spaces unremarkable. No depressed calvarialfractures. Mastoid air cells clear. Paranasal sinuses clear. Visualizedorbits unremarkable. IMPRESSION: 1. No definite CT evidence of acute intracranial abnormality. Ordered By: RORY PAN Interpreted By: Keshav Thomas MD, 10/21/2021 9:41 AM Rory Pan MD CT Final Result * XR CHEST PORTABLE (10/21/2021 9:35 AM PEDIATRIC DERMATOLOGIST) Anatomical Region Laterality Modality Chest Radiographic Britney ging 10/21/2021 9:41 AM PEDIATRIC DERMATOLOGIST Impressions 10/21/2021 9:41 AM PEDIATRIC DERMATOLOGIST IMPRESSION: Negative chest Ordered By: RORY PAN Interpreted By: Jaret Hall MD, 10/21/2021 9:41 AM Narrative 10/21/2021 9:41 AM PEDIATRIC DERMATOLOGIST SINGLE VIEW OF THE CHEST Clinical history: Pain Comparison: None A single view of the chest demonstrates the cardiac silhouette and mediastinal contours to be within normal limits for size. The pulmonary vessels are normally distributed. The Lungs are clear. No consolidations or effusions are seen. Procedure Note Jaret Hall MD - 10/21/2021 SINGLE VIEW OF THE CHEST Clinical history: Pain Comparison: None A single view of the chest demonstrates the cardiac silhouette andmediastinal contours to be within normal limits for size. The pulmonaryvessels are normally distributed. The Lungs are clear. No consolidationsor effusions are seen. IMPRESSION: Negative chest Ordered By: RORY PNA Interpreted By: Jaret Hall MD, 10/21/2021 9:41 AM us Rory Pan MD GENERAL IMAGING Final Result * ECG 12 lead (10/21/2021 9:34 AM PEDIATRIC DERMATOLOGIST) 10/21/2021 9:34 AM PEDIATRIC DERMATOLOGIST Narrative [facility] - 10/21/2021 11:12 AM PEDIATRIC DERMATOLOGIST ? [facility] ?[address] [place], [place] ??[address] ? Test Date: ?2021-10-21 Pat Name: ? JASON LONDON ?Department: ? Room: ? EXAM 2 Gender: ? Male ? Inpatient Services Rn: ?? : ?[id number] ? Requested By: RORY PAN Order Number: [id number] ? Reading : ?? Marco Antonio Braden ? Measurements Intervals ?[place] ? Rate: ? 83 ? P: ?63 [place]: ? 158 ?QRS: ?62 QRSD: ? 96 ? T: ?67 QT: ? 361 ? QTc: ?425 ? Interpretive Statements SINUS RHYTHM ATRIC DERMATOLOGIST Procedure Note Marco Antonio Braden MD - 10/21/[address] [place] [address] Test Date: 2021-10-21 Pat Name: JASON LONDON Department: Room: EXAM 2 Gender: Male Inpatient Services Rn: : [id number] Requested By: RORY PAN Order Number: [id number] Reading MD: Marco Antonio Braden Measurements Intervals [place] Rate: 83 P: 63 [place]: 158 QRS: 62 QRSD: 96 T: 67 QT: 361 QTc: 425 Interpretive Statements SINUS RHYTHM ATRIC DERMATOLOGIST us Rory Pan MD ECG ORDERABLES Final Result [facility] * RESPIRATORY PCR PANEL 2 (10/21/2021 9:30 AM PEDIATRIC DERMATOLOGIST) ADENOVIRUS PCR (RESP) NOT DETECTED NOT DETECTED 10/21/2021 7:19 PM PEDIATRIC DERMATOLOGIST [facility] CORONAVIRUS 229E PCR (RESP) NOT DETECTED NOT DETECTED 10/21/2021 7:19 PM PEDIATRIC DERMATOLOGIST [facility] CORONAVIRUS HKU1 PCR (RESP) NOT DETECTED NOT DETECTED 10/21/2021 7:19 PM PEDIATRIC DERMATOLOGIST [facility] CORONAVIRUS NL63 PCR (RESP) NOT DETECTED NOT DETECTED 10/21/2021 7:19 PM PEDIATRIC DERMATOLOGIST [facility] CORONAVIRUS OC43 PCR (RESP) NOT DETECTED NOT DETECTED 10/21/2021 7:19 PM PEDIATRIC DERMATOLOGIST [facility] METAPNEUMOVIRUS PCR (RESP) NOT DETECTED NOT DETECTED 10/21/2021 7:19 PM PEDIATRIC DERMATOLOGIST [facility] RHINOVIRUS/ENTEROV IRUS PCR (RESP) NOT DETECTED NOT DETECTED 10/21/2021 7:19 PM PEDIATRIC DERMATOLOGIST [facility] INFLUENZA A PCR (RESP) NOT DETECTED NOT DETECTED 10/21/2021 7:19 PM PEDIATRIC DERMATOLOGIST [facility] INFLUENZA B PCR (RESP) NOT DETECTED NOT DETECTED 10/21/2021 7:19 PM PEDIATRIC DERMATOLOGIST [facility] PARAINFLUENZA 1 PCR (RESP) NOT DETECTED NOT DETECTED 10/21/2021 7:19 PM PEDIATRIC DERMATOLOGIST [facility] PARAINFLUENZA 2 PCR (RESP) NOT DETECTED NOT DETECTED 10/21/2021 7:19 PM PEDIATRIC DERMATOLOGIST [facility] PARAINFLUENZA 3 PCR (RESP) NOT DETECTED NOT DETECTED 10/21/2021 7:19 PM PEDIATRIC DERMATOLOGIST [facility] PARAINFLUENZA 4 PCR (RESP) NOT DETECTED NOT DETECTED 10/21/2021 7:19 PM PEDIATRIC DERMATOLOGIST [facility] RSV PCR (RESP) NOT DETECTED NOT DETECTED 10/21/2021 7:19 PM PEDIATRIC DERMATOLOGIST [facility] B PARAPERTUSIS PCR (RESP) NOT DETECTED NOT DETECTED 10/21/2021 7:19 PM PEDIATRIC DERMATOLOGIST [facility] BORDETELLA PERTUSSIS PCR (RESP) NOT DETECTED NOT DETECTED 10/21/2021 7:19 PM PEDIATRIC DERMATOLOGIST [facility] CHLAMYDOPHILA PNEUMONIAE PCR (RESP) NOT DETECTED NOT DETECTED 10/21/2021 7:19 PM PEDIATRIC DERMATOLOGIST [facility] MYCOPLASMA PNEUMONIAE PCR (RESP) NOT DETECTED NOT DETECTED 10/21/2021 7:19 PM PEDIATRIC DERMATOLOGIST [facility] CORONAVIRUS SARS COV 2 PCR (RESP) NOT DETECTED NOT DETECTED 10/21/2021 7:19 PM PEDIATRIC DERMATOLOGIST [facility] FIRST TEST UNKNOWN 10/21/2021 9:49 AM PEDIATRIC DERMATOLOGIST [facility] EMPLOYED IN HEALTHCARE UNKNOWN 10/21/2021 9:49 AM PEDIATRIC DERMATOLOGIST [facility] SYMPTOMATIC DEFINED BY CDC NO 10/21/2021 9:49 AM PEDIATRIC DERMATOLOGIST [facility] HOSPITALIZATION STATUS NO 10/21/2021 9:49 AM PEDIATRIC DERMATOLOGIST [facility] PATIENT IN ICU NO 10/21/2021 9:52 AM PEDIATRIC DERMATOLOGIST [facility] RESIDENT OF [facility] UNKNOWN 10/21/2021 9:49 AM PEDIATRIC DERMATOLOGIST [facility] NASOPHARYNGEAL SWAB / Unknown 10/21/2021 9:30 AM PEDIATRIC DERMATOLOGIST Rory Pan MD MICROBIOLOGY - GENERAL ORDERABLE S Final Result [facility] [address] [place] [address], [facility] [address] [place] [address], [id number] * CORONAVIRUS (COVID-19) ANTIGEN DIRECT OPTICAL (10/21/2021 9:30 AM PEDIATRIC DERMATOLOGIST) CORONAVIRUS ANTIGEN IA NEGATIVE NEGATIVE 10/21/2021 9:58 AM PEDIATRIC DERMATOLOGIST [facility] Comment: NEGATIVE RESULTS DO NOT RULE [...] USE BY AUTHORIZED LABORATORIES. SPECIMEN TYPE NASAL 10/21/2021 9:49 AM PEDIATRIC DERMATOLOGIST [facility] FIRST TEST UNKNOWN 10/21/2021 9:49 AM PEDIATRIC DERMATOLOGIST [facility] EMPLOYED IN HEALTHCARE UNKNOWN 10/21/2021 9:49 AM PEDIATRIC DERMATOLOGIST [facility] SYMPTOMATIC DEFINED BY CDC NO 10/21/2021 9:49 AM PEDIATRIC DERMATOLOGIST [facility] HOSPITALIZATION STATUS NO 10/21/2021 9:49 AM PEDIATRIC DERMATOLOGIST [facility] RESIDENT OF [facility] UNKNOWN 10/21/2021 9:49 AM PEDIATRIC DERMATOLOGIST [facility] Specimen from nose (specimen) NASAL STRUCTURE / Unknown 10/21/2021 9:30 AM PEDIATRIC DERMATOLOGIST us Rory Pan MD MICROBIOLOGY - GENERAL ORDERABLE S Final Result Performing Organization Address City/[facility]/ZIP Co de Phone Number [facility] [place] [address], * TROPONIN, QUANT (10/21/2021 9:15 AM PEDIATRIC DERMATOLOGIST) TROPONIN I 7 0 - 76 ng/L 10/21/2021 9:52 AM PEDIATRIC DERMATOLOGIST [facility] 10/21/2021 9:15 AM PEDIATRIC DERMATOLOGIST us Rory Pan MD LABORATORY Final Result [facility] [address] [place] [address], * (ABNORMAL) LIPASE (10/21/2021 9:15 AM PEDIATRIC DERMATOLOGIST) LIPASE 42(L) 73 - 393 UNITS/L 10/21/2021 10:05 AM PEDIATRIC DERMATOLOGIST [facility] 10/21/2021 9:15 AM PEDIATRIC DERMATOLOGIST us Rory Pan MD LABORATORY Final Result Performing Organization Address [facility]/ZIP Co de Phone Number [facility] [address] [place] [address], * SALICYLATE (10/21/2021 9:15 AM PEDIATRIC DERMATOLOGIST) SALICYLATES 5.3 2.8 - 20.0 MG/DL 10/21/2021 10:01 AM PEDIATRIC DERMATOLOGIST [facility] 10/21/2021 9:15 AM PEDIATRIC DERMATOLOGIST us Rory Pan MD LABORATORY Final Result Performing Organization Address [facility] [place] [address], [place] [phone] * THYROID STIM HORMONE, TSH (10/21/2021 9:15 AM PEDIATRIC DERMATOLOGIST) Pathologist [facility] TSH 1.221 0.358 - 3.740 uIU/ML 10/21/2021 10:01 AM PEDIATRIC DERMATOLOGIST [facility] 10/21/2021 9:15 AM PEDIATRIC DERMATOLOGIST us Rory Pan MD LABORATORY Final Result Performing Organization Address [facility]/ZIP Co de Phone Number [facility] [address] [place] [address], [place] [phone] * (ABNORMAL) ACETAMINOPHEN (10/21/2021 9:15 AM PEDIATRIC DERMATOLOGIST) ACETAMINOPHEN S/P/B 0.0(L) 10.0 - 30.0 MCG/ML 10/21/2021 10:05 AM PEDIATRIC DERMATOLOGIST [facility] 10/21/2021 9:15 AM PEDIATRIC DERMATOLOGIST us Rory Pan MD LABORATORY Final Result [facility] [address] [place] [address], * ETHANOL (10/21/2021 9:15 AM PEDIATRIC DERMATOLOGIST) ALCOHOL S/P/B <0.003 <0.003 G/DL 10/21/2021 10:05 AM [facility] 10/21/2021 9:15 AM PEDIATRIC DERMATOLOGIST us Rory Pan MD LABORATORY Final Result Performing Organization Address [facility] de Phone Number [facility] [address] [place] [address], * (ABNORMAL) COMPREHENSIVE METABOLIC PANEL (10/21/2021 9:15 AM PEDIATRIC DERMATOLOGIST) SODIUM S/P/B 138 136 - 145 MMOL/L 10/21/2021 10:01 AM [facility] POTASSIUM S/P/B 3.8 3.5 - 5.1 MMOL/L 10/21/2021 10:01 AM [facility] CHLORIDE S/P/B 99 98 - 107 MMOL/L 10/21/2021 10:01 AM [facility] CO2 28.2 21.0 - 32.0 MMOL/L 10/21/2021 10:01 AM [facility] GLUCOSE 100(H) 70 - 99 MG/DL 10/21/2021 10:01 AM [facility] Comment: FASTING GLUCOSE 100 TO 125 MG/DL IS CONSISTENT WITH IMPAIRED FASTING GLUCOSE. FASTING GLUCOSE >125 MG/DL IS CONSISTENT WITH DIABETES. RANDOM GLUCOSE >200 MG/DL WITH HYPERGLYCEMIC SYMPTOMS IS CONSISTENT WITH DIABETES. PER ADA GUIDELINES BUN 14 6 - 24 MG/DL 10/21/2021 10:01 AM [facility] CREATININE S/P/B 0.69(L) 0.70 - 1.30 MG/DL 10/21/2021 10:01 AM [facility] CALCIUM S/P/B 8.3(L) 8.4 - 10.5 MG/DL 10/21/2021 10:01 AM [facility] BILIRUBIN TOTAL S/P/B 0.3 0.2 - 1.0 MG/DL 10/21/2021 10:01 AM [facility] Comment: THIS ASSAY IS NOT RECOMMENDED FOR PATIENTS UNDERGOING TREATMENT WITH ELTROMBOPAG DUE TO THE POTENTIAL FOR FALSELY ELEVATED RESULTS. ALKALINE PHOSPHATASE S/P/B 132(H) 45 - 115 U/L 10/21/2021 10:01 AM [facility] AST 46(H) 15 - 37 U/L 10/21/2021 10:01 AM [facility] ALT 50 16 - 63 U/L 10/21/2021 10:01 AM [facility] TOTAL PROTEIN S/P/B 8.1 6.4 - 8.2 G/DL 10/21/2021 10:01 AM [facility] ALBUMIN S/P/B 4.1 3.4 - 5.0 G/DL 10/21/2021 10:01 AM [facility] ANION GAP 10.8 5.0 - 15.0 MMOL/L 10/21/2021 10:01 AM [facility] OSMOLALITY (CALC) 287 MOSM/KG 022 10:01 AM [facility] Comment:REFERENCE RANGE NOT ESTABLISHED EGFR NON-AFR. AMER. >90 >89 ML/MIN/1. 73 M2 10/21/2021 10:01 AM [facility] EGFR AFR. AMER. >90 >89 ML/MIN/1. 73 M2 10/21/2021 10:01 AM [facility] GFR NOTES GFR REFERENCE S: 10/21/2021 10:01 AM [facility] Comment: THE ESTIMATED GFR IS CALCULATED USING THE 2009 CKD-EPI EQUATION. THE FOLLOWING CATEGORIES FOR GRADING RENAL FUNCTION ARE RECOMMENDED BY THE [employer]ATIONAL [employer]IETY OF NEPHROLOGY (KDIGO 2012 CLINICAL PRACTICE GUIDELINE). G1,NORMAL OR HIGH: >89 ml/min/1.73 m2 G2,MILDLY DECREASED: 60-89 ml/min/1.73 m2 G3A,MILDLY TO MODERATELY DECREASED: 45-59 ml/min/1.73 m2 G3B,MODERATELY TO SEVERELY DECREASED: 30-44 ml/min/1.73 m2 G4,SEVERELY DECREASED: 15-29 ml/min/1.73 m2 G5,KIDNEY FAILURE: <15 ml/min/1.73 m2 10/21/2021 9:15 AM PEDIATRIC DERMATOLOGIST us Rory Pna MD LABORATORY Final Result [facility] [address] [place] [address], * CBC W/DIFF AUTOMATED (10/21/2021 9:15 AM PEDIATRIC DERMATOLOGIST) WBC 6.3 4.0 - 10.8 x10'3/uL 10/21/2021 9:26 AM PEDIATRIC DERMATOLOGIST [facility] RBC 5.38 4.50 - 6.10 x10'6/uL 10/21/2021 9:26 AM [facility] HGB 16.7 13.0 - 18.0 G/DL 10/21/2021 9:26 AM [facility] HCT 49.5 37.0 - 52.0 % 10/21/2021 9:26 AM [facility] MCV 92.0 78.0 - 100.0 FL 10/21/2021 9:26 AM [facility] MCH 31.0 27.0 - 31.0 PG 10/21/2021 9:26 AM [facility] MCHC 33.7 33.0 - 36.0 G/DL 10/21/2021 9:26 AM [facility] RDW 12.6 11.5 - 14.5 % 10/21/2021 9:26 AM [facility] PLT 268 150 - 350 x10'3/uL 10/21/2021 9:26 AM [facility] MPV 9.4 7.4 - 10.4 FL 10/21/2021 9:26 AM [facility] DIFFERENTIAL COMMENT NORMAL REFERENCE RANGE NOT ESTABLISHED FOR THE PROPORTIONAL LEUKOCYTE DIFFERENTIAL. 10/21/2021 9:26 AM [facility] SEG NEUTROPHILS 47.0 % 9:26 AM [facility] LYMPHOCYTES 39.0 % 10/21/2021 9:26 AM [facility] MONOCYTES 6.9 % 10/21/2021 9:26 AM [facility] EOSINOPHILS 5.6 % 10/21/2021 9:26 AM [facility] BASOPHILS 1.3 % 10/21/2021 9:26 AM [facility] IMMATURE GRANS % 0.2 % 10/21/19 9:26 AM [facility] NRBC 0.0 % 10/21/2021 9:26 AM [facility] ABS. NEUTROPHILS 2.95 1.60 - 8.30 x10'3/uL 10/21/2021 9:26 AM [facility] ABS. LYMPHOCYTES 2.44 0.80 - 4.70 x10'3/uL 10/21/2021 9:26 AM [facility] ABS. MONOCYTES 0.43 0.00 - 1.50 x10'3/uL 10/21/2021 9:26 AM [facility] ABS. EOSINOPHILS 0.35 0.00 - 0.40 x10'3/uL 10/21/2021 9:26 AM [facility] ABS. BASOPHILS 0.08 0.00 - 0.20 x10'3/uL 10/21/2021 9:26 AM [facility] LAB ABS. IMMATURE GRANULOCYTES 0.01 0.00 - 0.03 x10'3/uL 10/21/2021 9:26 AM [facility] LAB ABS. NUCLEATED RBC'S 0.00 0.00 x10'3/uL 10/21/2021 9:26 AM [facility] LAB 10/21/2021 9:15 AM PEDIATRIC DERMATOLOGIST Rory Pan MD LABORATORY Final Result [facility] [address] [place] [address], * (ABNORMAL) DRUG SCREEN RAPID (10/21/2021 9:08 AM PEDIATRIC DERMATOLOGIST) Pathologist [facility] CANNABINOIDS SCREEN (U) POSITIVE(A) NEGATIVE 10/21/2021 9:44 AM PEDIATRIC DERMATOLOGIST [facility] PHENCYCLIDINE PCP (U) NEGATIVE NEGATIVE 10/21/2021 9:44 AM PEDIATRIC DERMATOLOGIST [facility] COCAINE METABOLITES (U) NEGATIVE NEGATIVE 10/21/2021 9:44 AM PEDIATRIC DERMATOLOGIST [facility] METHAMPHETAMINE (U) POSITIVE(A) NEGATIVE 10/21/2021 9:44 AM PEDIATRIC DERMATOLOGIST [facility] OPIATE SCREEN (U) NEGATIVE NEGATIVE 022 9:44 AM PEDIATRIC DERMATOLOGIST [facility] AMPHETAMINE (U) POSITIVE(A) NEGATIVE 10/21/19 9:44 AM PEDIATRIC DERMATOLOGIST [facility] BENZODIAZEPINES SCREEN (U) NEGATIVE NEGATIVE 10/21/2021 9:44 AM PEDIATRIC DERMATOLOGIST [facility] TRICYCLIC ANTIDEPRESSANT SCREEN (U) NEGATIVE NEGATIVE 10/21/2021 9:44 AM [facility] METHADONE (U) NEGATIVE NEGATIVE 10/21/2021 9:44 AM PEDIATRIC DERMATOLOGIST [facility] BARBITURATES SCREEN (U) NEGATIVE NEGATIVE 10/21/2021 9:44 AM PEDIATRIC DERMATOLOGIST [facility] OXYCODONE SCREEN (U) NEGATIVE NEGATIVE 10/21/2021 9:44 AM PEDIATRIC DERMATOLOGIST [facility] PROPOXYPHENE SCREEN (U) NEGATIVE NEGATIVE 10/21/2021 9:44 AM [facility] URINE TOX COMMENT THIS TEST METHODOLOGY IS DESIGNED AND OFFERED A RAPID TURNAROUND, QUALITATIVE SCREENING PROCEDURE TO AID IN THE IMMEDIATE MEDICAL ASSESSMENT OF PATIENTS SUSPECTED OF SUBSTANCE ABUSE. 10/21/2021 9:17 AM PEDIATRIC DERMATOLOGIST [facility] Comment: CLINICAL CONSIDERATION AND PROFESSIONAL JUDGMENT MUST BE APPLIED TO ANY DRUG OF ABUSE TEST RESULT, BOTH POSITIVE AND NEGATIVE. CONFIRMATORY QUANTITATIVE RESULTS ARE AVAILABLE THROUGH OUR [facility]. URINE SPECIMEN / Unknown 10/21/2021 9:08 AM PEDIATRIC DERMATOLOGIST Rory Pan MD URINE ORDERABLES Final Result [facility] [address] [place] [address], * (ABNORMAL) URINALYSIS (10/21/2021 9:08 AM PEDIATRIC DERMATOLOGIST) COLOR (U) YELLOW 10/21/2021 9:44 AM PEDIATRIC DERMATOLOGIST [facility] TRANSPARENCY CLEAR 10/21/2021 9:44 AM [facility] SPECIFIC GRAVITY (U) 1.020 1.000 - 1.025 10/21/2021 9:44 AM PEDIATRIC DERMATOLOGIST [facility] U PH 7.0 5.0 - 8.0 10/21/2021 9:44 AM [facility] LEUKOCYTES (U) NEGATIVE NEGATIVE 10/21/2021 9:44 AM PEDIATRIC DERMATOLOGIST [facility] NITRITES NEGATIVE NEGATIVE 10/21/2021 9:44 AM [facility] PROTEIN (U) NEGATIVE NEGATIVE 10/21/2021 9:44 AM [facility] URINE GLUCOSE NEGATIVE NEGATIVE 10/21/2021 9:44 AM [facility] KETONES MG/DL (U) NEGATIVE NEGATIVE 10/21/2021 9:44 AM [facility] UROBILINOGEN 1.0(H) <1.0 EU/DL 10/21/2021 9:44 AM PEDIATRIC DERMATOLOGIST [facility] BILIRUBIN (U) NEGATIVE NEGATIVE 10/21/2021 9:44 AM [facility] BLOOD (U) NEGATIVE NEGATIVE 10/21/2021 9:44 AM [facility] WBC/HPF 0-5 0 - 5 /HPF 10/21/2021 9:44 AM [facility] RBC/HPF 0-5 0 - 5 /HPF 10/21/2021 9:44 AM PEDIATRIC DERMATOLOGIST [facility] EPI/HPF OCCASIONAL /LPF 10/21/2021 9:44 AM PEDIATRIC DERMATOLOGIST [facility] BACTERIA (U) TRACE /HPF 10/21/2021 9:44 AM PEDIATRIC DERMATOLOGIST [facility] MUCUS PRESENT 10/21/2021 9:44 AM PEDIATRIC DERMATOLOGIST [facility] URINE SPECIMEN OBTAINED BY CLEAN CATCH PROCEDURE / Unknown 10/21/2021 9:08 AM PEDIATRIC DERMATOLOGIST Rory Pan MD URINE ORDERABLES Final Result [facility] [address] [place] [address], documented in this encounter Visit Diagnoses Diagnosis Left upper quadrant abdominal pain- Primary Depression with suicidal ideation Injury of head, initial encounter Drug abuse ([facility]) Other, mixed, or unspecified nondependent drug abuse, unspecified documented in this encounter Administered Medications Inactive Administered Medications - up to 3 most recent administrations Medication Order MAR Action Action Date Dose Rate Site nicotine (NICODERM CQ) 21 MG/24HR patch 21 mg 21 mg (1 patch), Transdermal, Administer over 24 Hours, Once, 1 dose, On 10/21/21 at 1000 Patch Applied 10/21/2021 10:06 AM PEDIATRIC DERMATOLOGIST 21 mg Right Shoulder ondansetron (ZOFRAN-ODT) disintegrating tablet 4 mg 4 mg, Oral, Once, 1 dose, On 10/21/21 at 1315 Given 10/21/2021 1:24 PM PEDIATRIC DERMATOLOGIST 4 mg thiamine tablet 100 mg 100 mg, Oral, Once, 1 dose, On 10/21/21 at 1015 Given 10/21/2021 1:25 PM PEDIATRIC DERMATOLOGIST 100 mg documented in this encounter Active and Recently Administered Medications Times are shown in PEDIATRIC DERMATOLOGIST. Scheduled Medication Order 10/19/2021 10/20/2021 10/21/2021 nicotine (NICODERM CQ) 21 MG/24HR patch 21 mg 21 mg (1 patch), Transdermal, Administer over 24 Hours, Once, 1 dose, On 10/21/21 at 1000 1006 (Patch Applied - Provider: Magaly Chavarria RN)1404 (Due: Patch Removed - Provider: Automatic Discharge Provider - Comment: Time automatically adjusted from order being discontinued) ondansetron (ZOFRAN-ODT) disintegrating tablet 4 mg (COMPLETED) 4 mg, Oral, Once, 1 dose, On 10/21/21 at 1315 1324 (Given - Provid er: Magaly Chavarria RN) thiamine tablet 100 mg (COMPLETED) 100 mg, Oral, Once, 1 dose, On 10/21/21 at 1015 1325 (Given - Provid er: Magaly Chavarria RN - Comment: Pt nauseated) documented in this encounter Additional Health Concerns Infection Onset Date Last Indicated Resolved Time COVID-19 Rule Out 10/21/2021 10/21/2021 10/21/2021 9:59 AM PEDIATRIC DERMATOLOGIST documented as of this encounter Care Teams Telecommunications Network Planner Relationship Specialty Start Date End Date Aldo Montenegro MD [address] [place] [address] PCP - General INTERNAL MEDICINE 10/21/21 documented as of this encounter
--- OUTSIDE RECORDS SUMMARY | 2024-10-14 00:44 | XMS_ITS | Encounter Summary ---
Author Organization [facility] Address [address] [place] [address]. [place], [place] [address] [place] [address] Care Team Providers Care Account Support Rep Name Role Phone Hector Wall MD Primary Care Provider Unavailable Encounter Details Date Type Department Care Team (Late st Contact Info) Description 08/10/2017 Scan [place] [address] Hector Wall MD Social History Tobacco Use [...] on filedocumented in this encounter Care Teams Account Support Rep Relationship Specialty Start Date End Date Hector Wall MD PCP - General 03/30/15 documented as of this encounter
--- OUTSIDE RECORDS SUMMARY | 2024-10-14 00:44 | XMS_ITS | Encounter Summary ---
Author Organization [facility] Address [address] [place] [address]. [place], [place] [address] [place] [address] Care Team Providers Care Clinical Instructor Name Role Phone Aldo Montenegro MD Primary Care Provider [phone] Reason for Visit * Reason Comments Earache Sore Throat Encounter Details Date Type Department Care Team (Late st Contact Info) Description 12/25/2021 5:05 PM CDT - 12/25/2021 5:43 PM CDT Emergency [facility] Pending sale to [facility] [place] [address] Sanchez Lara MD [address] [place] [id number] Earache; Sore Throat Discharge Disposition: Home or Self Care (Routine [...] Sign Reading Time Taken Comments Blood Pressure 156/101 12/25/2021 5:14 PM CDT Pulse 104 12/25/2021 5:14 PM CDT Temperature 37.3 ??C (99.1 ??F) 12/25/2021 5:14 PM CD T Respiratory Rate 18 12/25/2021 5:14 PM CDT Oxygen Saturation 97% 12/25/2021 5:14 PM CDT Inhaled Oxygen Concentration - - Weight 86.2 kg (190 lb) 12/25/2021 5:14 PM CDT Height 190.5 cm (6' 3 ) 12/25/2021 5:14 PM CDT Body Mass Index 23.75 12/25/2021 5:14 PM CDT documented in this encounter Discharge Instructions * Attachments The following attachments cannot be sent through Care Everywhere. * Sore Throat, Adult ED (Slovenian) * Strep Throat Discharge Instructions (Slovenian) documented in this encounter Medications at Time of Discharge amoxicillin-clavu lanate (AUGMENTIN) 875-125 MG tablet Take 1 tablet (875 mg total) by mouth 2 (two) times daily for 10 days. 20 tablet 12/23/2021 01/02/2022 predniSONE 20 MG tablet Take 1 tablet (20 mg total) by mouth 2 (two) times daily for 3 days. 6 tablet 12/25/2021 12/28/2021 QUEtiapine 200 MG tablet 200 mg nightly at bedtime. 08/21/2021 07/13/2023 QUEtiapine 25 MG tablet 2 (two) times daily. 08/21/2021 01/23/2024 documented as of this encounter ED Notes * Va Moreno RN - 12/25/2021 5:09 PM CDT Patient was here Saturday with right ear pain and a sore throat. He states that he was prescribed an antibiotic but didn't have time to fill it. Here for the same thing today. * Sanchez Lara MD - 12/25/2021 5:06 PM CDT eMERGENCY dEPARTMENT eNCOUnter CHIEF COMPLAINT Chief Complaint Patient presents with ??? Earache ??? Sore Throat HPI HPI Jason London is a 31-year-old male who presents to the ER with a complaint of persistent sore throat with mild ear pain. Patient was seen here 3 days ago with the same and was started on Augmentin but he admits to not getting the prescription filled yet due to his work schedule. Symptoms are worsening. No fevers chills or other complaints aside from difficulty swallowing. ALLERGIES No Known Allergies CURRENT MEDICATIONS Current Outpatient Medications Medication Sig ??? predniSONE 20 MG tablet Take 1 tablet (20 mg total) by mouth 2 (two) times daily for 3 days. ??? amoxicillin-clavulanate (AUGMENTIN) 875-125 MG tablet Take 1 tablet (875 mg total) by mouth 2 (two) times daily for 10 days. ??? QUEtiapine 200 MG tablet 200 mg nightly at bedtime. ??? QUEtiapine 25 MG tablet 2 (two) times daily. PAST MEDICAL HISTORY Past Medical History: Diagnosis Date ??? Anxiety ??? Depression ??? Pancreatitis SURGICAL HISTORY No past surgical history on file. SOCIAL HISTORY Social History Socioeconomic History ??? Marital status: Spouse name: Not on file ??? Number of children: Not on file ??? Years of education: Not on file ??? Highest education level: Not on file Occupational History ??? Not on file Tobacco Use ??? Smoking status: Current Every Day Smoker Packs/day: 1.00 ??? Smokeless tobacco: Never Used Vaping Use ??? Vaping Use: Never used Substance and Sexual Activity ??? Alcohol use: Not Currently Comment: Gallon a day ??? Drug use: Yes Types: Marijuana Comment: denies ??? Sexual activity: Not on file Other Topics Concern ??? Not on file Social History Narrative ??? Not on file Social Determinants of Health Financial Resource Strain: Not on file Food Insecurity: Not on file Transportation Needs: Not on file Physical Activity: Not on file Stress: Not on file Social Connections: Not on file Intimate Partner Violence: Not on file FAMILY HISTORY No family history on file. REVIEW OF SYSTEMS Review of Systems All other ROS negative unless noted above in HPI. PHYSICAL EXAM Physical Exam Filed Vitals: 12/25/21 1714 BP: (!) 156/101 Pulse: 104 Resp: 18 Temp: 99.1 ??F (37.3 ??C) TempSrc: Temporal SpO2: 97% Weight: 86.2 kg (190 lb) Height: 6' 3 (1.905 m) The patient is a well developed and well nourished adult male in mild painful distress, alert and oriented. HEENT: PERRL, EOMI Nose without drainage Ears unremarkable Throat enlarged erythematous tonsils bilaterally without exudate, mucous membranes moist NECK: Supple with bilateral anterior cervical adenopathy CHEST: Lungs clear and equal to auscultation NEURO: CN II-XII intact, no focal weakness SKIN: No rash or significant lesions EKG RADIOLOGY No orders to display LABS Results for orders placed or performed during the hospital encounter of 12/25/21 RAPID STREP A Specimen: THROAT Result Value Ref Range SPECIMEN SOURCE THROAT RAPID STREP TEST POSITIVE (A) NEGATIVE ED MEDICATIONS Medications predniSONE (DELTASONE) tablet 40 mg (has no administration in time range) amoxicillin-clavulanate (AUGMENTIN) 875-125 MG tablet 875 mg (has no administration in time range) PROCEDURES Procedures CONSULTS: ED COURSE & MEDICAL DECISION MAKING MDM Patient with strep throat so we will start him on his medication now and he believes he can get theprescriptions filled tomorrow. Please note that Augmentin was already sent to [facility] by my colleague several days ago. FINAL IMPRESSION SNOMED CT(R) 1. Strep throat STREPTOCOCCAL SORE THROAT Aldo Montenegro MD [address] [facility] [address] In 2 days If symptoms worsen New Prescriptions PREDNISONE 20 MG TABLET Take 1 tablet (20 mg total) by mouth 2 (two) times daily for 3 days. Sanchez Lara MD 12/25/21 1736 Sanchez Lara MD 12/25/21 1736 documented in this encounter Plan of Treatment Not on file documented as of this encounter Procedures Procedure Name Priority Date/Time Associated Diagnosis Comments RAPID STREP A STAT 12/25/2021 5:11 PM CDT documented in this encounter Results * (ABNORMAL) RAPID STREP A (12/25/2021 5:11 PM CDT) SPECIMEN SOURCE THROAT 12/25/2021 5:12 PM CDT [facility] RAPID STREP TEST POSITIVE(A) NEGATIVE 12/25/2021 5:27 PM CDT [facility] STRUCTURE OF ANTERIOR PORTION OF NECK / Unknown 12/25/2021 5:11 PM CDT us Sanchez Lara MD MICROBIOLOGY - GENERAL ORDERA BLES Final Result [facility] [id number] [place] [address], documented in this encounter Visit Diagnoses Diagnosis Strep throat- Primary Streptococcal sore throat documented in this encounter Administered Medications Inactive Administered Medications - up to 3 most recent administrations Medication Order MAR Action Action Date Dose Rate Site amoxicillin-clavulanate (AUGMENTIN) 875-125 MG tablet 875 mg 875 mg, Oral, Once, 1 dose, On Sat12/25/21 at 1745 Given 12/25/2021 5:36 PM CDT 875 mg predniSONE (DELTASONE) tablet 40 mg 40 mg, Oral, Once, 1 dose, On Sat12/25/21 at 1745 Given 12/25/2021 5:36 PM CDT 40 mg documented in this encounter Active and Recently Administered Medications Times are shown in CDT. Scheduled Medication Order 12/23/2021 12/24/2021 12/25/2021 amoxicillin-clavulanate (AUGMENTIN) 875-125 MG tablet 875 mg (COMPLETED) 875 mg, Oral, Once, 1 dose, On Sat12/25/21 at 1745 1736 (Given - Provid er: Sapna Null RN) predniSONE (DELTASONE) tablet 40 mg (COMPLETED) 40 mg, Oral, Once, 1 dose, On Sat12/25/21 at 1745 1736 (Given - Provid er: Sapna Null RN) documented in this encounter Care Teams Clinical Instructor Relationship Specialty Start Date End Date Aldo Montenegro MD [address] [place] [address] PCP - General INTERNAL MEDICINE 10/21/21 documented as of this encounter
--- OUTSIDE RECORDS SUMMARY | 2024-10-14 00:44 | XMS_ITS | Encounter Summary ---
Author Organization [facility] Address [address] [place] [address]. [place], [place] [address] [place] [address] Care Team Providers Care Lap Machine Tender Name Role Phone Hector Wall MD Primary Care Provider Unavailable Encounter Details Date Type Department Care Team (Late st Contact Info) Description 03/30/2015 Emergency [facility] Emergency [place], [place] [address] Katya Castillo MD [address] [place], [place] [address] Social History Tobacco Use Types Packs/Day Years Used Date Smoking Tobacco: Never Assessed Sex and Gender Information Value Date Recorded Sex Assigned at Not on file Legal Sex Male 4:44 PM CDT Gender Identity Not on file Sexual Orientation Not on file documented as of this encounter Plan of Treatment Not on file documented as of this encounter Visit Diagnoses Diagnosis Other depressive disorder documented in this encounter Care Teams Lap Machine Tender Relationship Specialty Start Date End Date Hector Wall MD PCP - General 03/30/15 documented as of this encounter
--- OUTSIDE RECORDS SUMMARY | 2024-10-14 00:44 | XMS_ITS | Encounter Summary ---
Author Organization [facility] Address [address] [place] [address]. [place], [place] [phone] [place] [address] Care Team Providers Care After School Teacher Name Role Phone Aldo Montenegro MD Primary Care Provider [phone] Encounter Details Date Type Department Care Team (Latest Contact Info) Description 12/22/2021 Travel Social History Tobacco Use Types Packs/Day [...] suspected to have Coronavirus/COVID-19? No / Unsure 12/22/2021 11:13 PM CDT documented as of this encounter Plan of Treatment Not on file documented as of this encounter Visit Diagnoses Not on filedocumented in this encounter Additional Health Concerns Infection Onset Date Last Indicated Resolved Time COVID-19 Rule Out 12/22/2021 12/22/2021 12/23/2021 12:05 AM CDT documented as of this encounter Care Teams After School Teacher Relationship Specialty Start Date End Date Aldo Montenegro MD [address] [place] [address] PCP - General INTERNAL MEDICINE 10/21/21 documented as of this encounter
--- OUTSIDE RECORDS SUMMARY | 2024-10-14 00:44 | XMS_ITS | Encounter Summary ---
Author Organization [facility] Address [address] [place] [address]. [place], [place] [id number] [place] [address] Care Team Providers Care Network Relations Consultant Name Role Phone Aldo Montenegro MD Primary Care Provider [phone] Reason for Visit * Reason Comments Cough Sore Throat Earache Encounter Details Date Type Department Care Team (Late st Contact Info) Description 12/22/2021 11:28 PM CDT - 12/23/2021 1:26 AM CDT Emergency [facility] [address] [place] [address] Cough; Sore Throat; Earache Discharge Disposition: Home or Self Care (Routine [...] Sign Reading Time Taken Comments Blood Pressure 138/89 12/23/2021 1:00 AM CDT Pulse 108 12/22/2021 11:34 PM CDT Temperature 37.4 ??C (99.3 ??F) 12/22/2021 11:34 PM C DT Respiratory Rate 18 12/22/2021 11:34 PM CDT Oxygen Saturation 100% 12/23/2021 1:00 AM CDT Inhaled Oxygen Concentration - - Weight 86.2 kg (190 lb) 12/22/2021 11:34 PM CDT Height 190.5 cm (6' 3 ) 12/22/2021 11:34 PM CDT Body Mass Index 23.75 12/22/2021 11:34 PM CDT documented in this encounter Medications at Time of Discharge amoxicillin-clavu lanate (AUGMENTIN) 875-125 MG tablet Take 1 tablet (875 mg total) by mouth 2 (two) times daily for 10 days. 20 tablet 12/23/2021 01/02/2022 QUEtiapine 200 MG tablet 200 mg nightly at bedtime. 08/21/2021 07/13/2023 QUEtiapine 25 MG tablet 2 (two) times daily. 08/21/2021 01/23/2024 documented as of this encounter ED Notes * Jesus Alegria DO - 12/23/2021 1:11 AM CDT Chief Complaint Chief Complaint Patient presents with ??? Cough ??? Sore Throat ??? Earache History of Present Illness 31-year-old white male presents with a chief complaint of having sore throat. Patient states his throat is sore and hurts when he swallows it radiates up to his ear. Nothing seems to make it better nothing seems to make it worse. Patient says the swelling has been going on for several days. Patientis not having any stridor or any trouble breathing. No fevers or chills. Medical History ALLERGIES: No Known Allergies MEDICATIONS: Prior to Admission medications Medication Sig Start Date End Date Taking? Authorizing Provider amoxicillin-clavulanate (AUGMENTIN) 875-125 MG tablet Take 1 tablet (875 mg total) by mouth 2 (two)times daily for 10 days. 12/23/21 01/02/22 Yes Jesus Alegria DO QUEtiapine 200 MG tablet 200 mg nightly at bedtime. 08/21/21 Doc Abstract QUEtiapine 25 MG tablet 2 (two) times daily. 08/21/21 Doc Abstract PAST MEDICAL HISTORY: Past Medical [...] used Substance Use Topics ??? Alcohol use: Not Currently Comment: Gallon a day ??? Drug use: Yes Types: Marijuana Comment: denies Review of Systems Review of Systems Constitutional: Negative. HENT: Negative. Eyes: Negative. Respiratory: Negative. Cardiovascular: Negative. Gastrointestinal: Negative. Endocrine: Negative. Genitourinary: Negative. Musculoskeletal: Negative. Allergic/Immunologic: Negative. Neurological: Negative. Hematological: Negative. Psychiatric/Behavioral: Negative. All other systems reviewed and are negative. Physical Exam Filed Vitals: 12/22/21 2334 BP: (!) 149/96 Pulse: 108 Resp: 18 Temp: 99.3 ??F (37.4 ??C) SpO2: 100% Weight: 86.2 kg (190 lb) Height: 6' 3 (1.905 m) Physical Exam Vitals reviewed. Constitutional: Appearance: Normal appearance. HENT: Head: Normocephalic. Right Ear: Tympanic membrane normal. Left Ear: Tympanic membrane normal. Nose: Nose normal. Mouth/Throat: Mouth: Mucous membranes are moist. Pharynx: Oropharyngeal exudate and posterior oropharyngeal erythema present. Comments: Patient has moderate swelling to the right tonsil. With erythema edema. Eyes: Extraocular Movements: Extraocular movements intact. Pupils: Pupils are equal, round, and reactive to light. Cardiovascular: Rate and Rhythm: Normal rate and regular rhythm. Pulses: Normal pulses. Abdominal: General: Abdomen is flat. Palpations: Abdomen is soft. Musculoskeletal: General: Normal range of motion. Cervical back: Normal range of motion. Skin: General: Skin is warm and dry. Neurological: General: No focal deficit present. Mental Status: He is alert and oriented to person, place, and time. Diagnostic Studies / Procedures ELECTROCARDIOGRAMS: No results found for this visit on 12/22/21. LABORATORY STUDIES: Results for orders placed or performed during the hospital encounter of 12/22/21 CORONAVIRUS (COVID-19) ANTIGEN DIRECT OPTICAL Specimen: NASAL Result Value Ref Range CORONAVIRUS ANTIGEN IA NEGATIVE NEGATIVE Specimen Type NASAL FIRST TEST UNKNOWN EMPLOYED IN HEALTHCARE NO SYMPTOMATIC DEFINED BY CDC UNKNOWN HOSPITALIZATION STATUS NO RESIDENT OF [facility] NO INFLUENZA A & B Specimen: NASAL Result Value Ref Range SPECIMEN TYPE (INFLUENZA) NASAL INFLUENZA A NEGATIVE NEGATIVE INFLUENZA B NEGATIVE NEGATIVE IMAGING STUDIES No orders to display ED Course / Medical Decision Making Clinical Impression Tonsillitis (Primary) Disposition: Discharge Jesus Alegria DO 12/23/21 0113 * Kadi Rojas RN - 12/22/2021 11:38 PM CDT PT C/O COUGH, RUNNY NOSE, SORE THROAT, AND RT EARACHE LAST 2 DAYS. documented in this encounter Plan of Treatment Not on file documented as of this encounter Procedures Procedure Name Priority Date/Time Associated Diagnosis Comments CORONAVIRUS (COVID-19) ANTIGEN DIRECT OPTICAL STAT 12/22/2021 11:33 PM CDT INFLUENZA A & B STAT 12/22/2021 11:33 PM CDT documented in this encounter Results * INFLUENZA A & B (12/22/2021 11:33 PM CDT) SPECIMEN TYPE (INFLUENZA) NASAL 12/22/2021 11:37 PM CDT [facility] INFLUENZA A NEGATIVE NEGATIVE 12/23/2021 12:14 AM CDT [facility] INFLUENZA B NEGATIVE NEGATIVE 12/23/2021 12:14 AM CDT [facility] Comment: A NEGATIVE RESULT DOES NOT EXCLUDE INFLUENZA VIRUS INFECTION. ??IF INFLUENZA IS CIRCULATING IN YOUR COMMUNITY, A DIAGNOSIS OF INFLUENZA SHOULD BE CONSIDERED BASED ON A PATIENT'S CLINICAL PRESENTATION AND EMPIRIC ANTIVIRAL TREATMENT SHOULD BE CONSIDERED IF INDICATED. NASAL STRUCTURE / Unknown 12/22/2021 11:33 PM CDT us Jesus J Alegria DO MICROBIOLOGY - GENERAL ORDERA BLES Final Result [facility] [address] [place] [address], * CORONAVIRUS (COVID-19) ANTIGEN DIRECT OPTICAL (12/22/2021 11:33 PM CDT) CORONAVIRUS ANTIGEN IA NEGATIVE NEGATIVE 12/23/2021 12:05 AM CDT [facility] Comment: NEGATIVE RESULTS DO NOT [...] USE BY AUTHORIZED LABORATORIES. SPECIMEN TYPE NASAL 12/22/2021 11:37 PM CDT [facility] FIRST TEST UNKNOWN 12/22/2021 11:37 PM CDT [facility] EMPLOYED IN HEALTHCARE NO 12/22/2021 11:37 PM CDT [facility] SYMPTOMATIC DEFINED BY CDC UNKNOWN 12/22/2021 11:37 PM CDT [facility] HOSPITALIZATION STATUS NO 12/22/2021 11:37 PM CDT [facility] RESIDENT OF [facility] NO 12/22/2021 11:37 PM CDT [facility] Specimen from nose (specimen) NASAL STRUCTURE / Unknown 12/22/2021 11:33 PM CDT Jesus Alegria DO MICROBIOLOGY - GENERAL ORDERA BLES Final Result Performing Organization Address City/[facility]/ZIP Co de Phone Number [facility] [address] [place] [address], documented in this encounter Visit Diagnoses Diagnosis Tonsillitis- Primary Acute tonsillitis documented in this encounter Administered Medications Inactive Administered Medications - up to 3 most recent administrations Medication Order MAR Action Action Date Dose Rate Site dexamethasone (DECADRON) injection 10 mg 10 mg, Intramuscular, Once, 1 dose, On 12/23/21 at 0115, Administer slowly over 1-4 minutes. Given 12/23/2021 1:23 AM CDT 10 mg Left Deltoid documented in this encounter Active and Recently Administered Medications Times are shown in CDT. Scheduled Medication Order 12/21/2021 12/22/2021 12/23/2021 dexamethasone (DECADRON) injection 10 mg (COMPLETED) 10 mg, Intramuscular, Once, 1 dose, On 12/23/21 at 0115, Administer slowly over 1-4 minutes. 0123 (Given - Provid er: Lavern Estrada RN) documented in this encounter Additional Health Concerns Infection Onset Date Last Indicated Resolved Time COVID-19 Rule Out 12/22/2021 12/22/2021 12/23/2021 12:05 AM CDT documented as of this encounter Care Teams Network Relations Consultant Relationship Specialty Start Date End Date Aldo Montenegro MD [address] [place] [address] PCP - General INTERNAL MEDICINE 10/21/21 documented as of this encounter
--- OUTSIDE RECORDS SUMMARY | 2024-10-14 00:44 | XMS_ITS | Encounter Summary ---
Author Organization [facility] Address [address] [place] [address]. [place], [place] [id number] [place] [address] Care Team Providers Care Telephone Assembler Name Role Phone Aldo Montenegro MD Primary Care Provider [phone] Encounter Details Date Type Department Care Team ([facility] st Contact Info) Description 12/21/2017 Abstract [facility] [address] [place] [address] , Generic MD Ariela Social History Tobacco Use Types Packs/Day Years [...] Rule Out 10/21/2021 10/21/2021 10/21/2021 9:59 AM AUTO REPAIR TECHNICIAN COVID-19 Rule Out 12/22/2021 12/22/2021 12/23/2021 12:05 AM CDT COVID-19 Rule Out 07/20/2023 07/20/2023 07/20/2023 10:57 AM CDT documented as of this encounter Care Teams Telephone Assembler Relationship Specialty Start Date End Date Aldo Montenegro MD [address] [place] [address] PCP - General INTERNAL MEDICINE 10/21/21 documented as of this encounter
--- OUTSIDE RECORDS SUMMARY | 2024-10-14 00:44 | XMS_ITS | Encounter Summary ---
Author Organization [facility] Address [address] [place] [address]. [place], [place] [id number] [place] [address] Care Team Providers Care Header Boss Name Role Phone Hector Wall MD Primary Care Provider Unavailable Encounter Details Date Type Department Care Team (Late st Contact Info) Description 01/30/2016 Emergency [facility] [address] [place] [address] Juan Jose Hardin MD [address] [place] [phone] Social History Tobacco Use Types Packs/Day Years Used Date Smoking Tobacco: Never Assessed Sex and Gender Information Value Date Recorded Sex Assigned at Not on file Legal Sex Male 4:44 PM CDT Gender Identity Not on file Sexual Orientation Not on file documented as of this encounter Plan of Treatment Not on file documented as of this encounter Visit Diagnoses Diagnosis Other intraarticular fracture of lower end of left radius, initial encounter for closed fracture documented in this encounter Care Teams Header Boss Relationship Specialty Start Date End Date Hector Wall MD PCP - General 03/30/15 documented as of this encounter
--- OUTSIDE RECORDS SUMMARY | 2024-10-14 00:44 | XMS_ITS | Encounter Summary ---
Author Organization [facility] Address [address] [place] [address]. [place], [place] [phone] [place] [address] Care Team Providers Care Tanyard Worker Name Role Phone Aldo Montenegro MD Primary Care Provider [phone] Encounter Details Date Type Department Care Team (Latest Contact Info) Description 10/21/2021 Travel Social History Tobacco Use Types Packs/Day [...] COVID-19? No / Unsure 10/21/2021 8:47 AM HYDROGEN PLANT OPERATIONS MANAGER documented as of this encounter Plan of Treatment Not on file documented as of this encounter Visit Diagnoses Not on filedocumented in this encounter Additional Health Concerns Infection Onset Date Last Indicated Resolved Time COVID-19 Rule Out 10/21/2021 10/21/2021 10/21/2021 9:59 AM HYDROGEN PLANT OPERATIONS MANAGER documented as of this encounter Care Teams Tanyard Worker Relationship Specialty Start Date End Date Aldo Montenegro MD [address] [place] [address] PCP - General INTERNAL MEDICINE 10/21/21 documented as of this encounter
== END 2024-10-07 11:12 ==
LOC: CHSED 10-07 00:24
PROVIDERS: Emergency Provider Emergency Medicine; PCP Internal Medicine
DX: F32.A Depression, unspecified (principal); R45.851 Suicidal ideations; F17.210 Nicotine dependence, cigarettes, uncomplicated; Z11.52 Encounter for screening for COVID-19
CPT/HCPCS: 36415; 80053; 80143; 80179; 80307; 82077; 85027; 87637; 93005; 99285